=== PATIENT | female | born 1960 | race Caucasian/White ===

== ENCOUNTER 2017-09-26 07:57 | Day surgery (SDC) | payer BC ==
[~2017-09-26 07:57] MED LIST: ALPR0.25 PO; ASPI81TA82 PO; CARV6.252 PO; CLOP75 PO; HYDR10TA16 PO; SIMV40TA PO; TRAM50TA PO
[2017-09-26 10:00] VITALS: BP 133/77; PULSE 71; RESP 18; TEMP 98.8; O2SAT 100
[2017-09-26] MEDS ORDERED: LIDOCAINE HCL 1% 20 ML VIAL ONE (10:10)
[2017-09-26 10:15] VITALS: BP 98/72; PULSE 70; RESP 18; O2SAT 100
--- NOTE | 2017-09-26 10:17 | RADRPT ---
EXAM DATE/TIME: 09/26/2017 09:47 [facility] COMPARISON: No previous studies available for comparison. INDICATIONS : Status post left Thoracentesis. Patient complains of shortness of breath. MEDICAL HISTORY : Carcinoma, lung. Stage 4, last chemo was 04/2017. SURGICAL HISTORY : CABG. Port placement. Triple bypass 2010. ENCOUNTER: Initial ACUITY: 1 day PAIN SCORE: 0/10 LOCATION: Left chest FINDINGS: There is no evidence of pneumothorax status post left thoracentesis. Tiny residual left pleural effus ion is noted. Streaky densities are noted within the lung bases bilaterally and the left mid lung fie ld consistent with fibrotic scarring and/or atelectasis. Median sternotomy wires are noted status pos t cardiac surgery. Left subclavian Fkmycs-t-Yuwa has its tip in the superior vena cava. CONCLUSION: 1. No pneumothorax status post left thoracentesis. 2. Tiny residual left pleural effusion. 3. Streaky densities within the lung bases bilaterally and left mid lung field consistent with fibrot ic scarring and/or atelectasis. Reynaldo Cruz MD on September 26, 2017 at 10:13 Board Certified Radiologist. This report was verified electronically.
[2017-09-26 10:30] VITALS: BP 131/73; PULSE 72; RESP 18; O2SAT 100
--- NOTE | 2017-09-26 12:48 | RADRPT ---
EXAM DATE/TIME: 09/26/2017 08:51 [facility] COMPARISON: No previous studies available for comparison. EXTERNAL COMPARISON: [facility], PET/CT TUMOR, Sep 11 2017, CT CHEST WITH CONTRAST, AUGUST 14, 2017, MAY 20, 2017, NOVEMBER 18, 2016, XR CHEST PA AND LAT, October. INDICATIONS : Left pleural effusion. MEDICAL HISTORY : Myocardial infarction. Hypercholesterolemia. Carcinoma, lung. Chest pain. Pleural effusion. SURGICAL HISTORY : Tonsillectomy. Tubal ligation. Cardiac cath. D&C. Chemo therapy. Radiation therapy. ENCOUNTER: Initial ACUITY: 1 month PAIN SCORE: 0/10 LOCATION: Left chest FLUID: Total volume of 1,000 cc of clear graciela fluid was removed. Fluid was sent to lab for ordered studies. TECHNIQUE: 1. Ultrasound guidance for thoracentesis. 2. Thoracentesis. The risks, benefits, and alternatives to ultrasound guided thoracentesis were explained to the patien t in lay simple terms, including the risk of bleeding and infection. Written and verbal informed con sent was obtained. Appropriate area for thoracentesis was marked under ultrasound guidance with the patient in the uprig ht position. Overlying skin was prepped and draped in the usual sterile fashion and with local anest hetic, a dermatotomy was made with an 11 blade scalpel. A 6 Polish thoracentesis catheter was placed in the pleural space and fluid was removed. Catheter was then removed and a sterile dressing applie d. There were no immediate complications. The patient tolerated the procedure well and the left the ultrasound suite in stable condition. Chest radiograph is to be obtained. CONCLUSION: Uncomplicated ultrasound guided thoracentesis. Reynaldo Cruz MD on September 26, 2017 at 12:46 Board Certified Radiologist. This report was verified electronically.
== END 2017-09-26 10:30 | disposition home or self-care (01) ==
LOC: HRAD 07:57 → HRIP 08:03 → HRAD 10:30
PROVIDERS: ATTEND Internal Medicine Hematology & Oncology
DX: J90 Pleural effusion, not elsewhere classified (principal); I25.2 Old myocardial infarction; E78.00 Pure hypercholesterolemia, unspecified; C34.92 Malignant neoplasm of unspecified part of left bronchus or lung
CPT/HCPCS: 32555; 71045; 88112; 88305; C1729

== ENCOUNTER 2018-01-31 07:13 | Emergency (ER) | payer OTHER ==
[~2018-01-31] VITALS: Ht 157.5 cm; Wt 46.5 kg
[2018-01-31 07:15] VITALS: BP 196/96; PULSE 81; RESP 18; TEMP 98; O2SAT 97
[2018-01-31] MEDS ORDERED: SODIUM CHLOR 0.9% 1000 ML INJ 1,000 ML IV SCH (07:35)
[2018-01-31] MEDS ORDERED: OXYC-395 PO (07:43)
[2018-01-31] MEDS ORDERED: FOLI800T PO (07:43)
[2018-01-31] MEDS ORDERED: FENT75DI T-DERMAL (07:43)
[2018-01-31] MEDS ORDERED: ALPR0.25 PO (07:43)
[2018-01-31] MEDS ORDERED: AMIT50TA3 PO (07:43)
[2018-01-31] MEDS ORDERED: TRAM50TA PO (07:43)
[2018-01-31] MEDS ORDERED: HYDROmorphone HCL PF 1 MG/ML VIAL IVS ONE (07:45)
[2018-01-31] MEDS ORDERED: ONDANSETRON HCL 4 MG/2 ML VIAL IVP ONE (07:45)
--- NOTE | 2018-01-31 07:55 | PD ---
HPI Chief Complaint: Back/ Neck Pain or Injury Time Seen by Provider: 07:35 Travel History International Travel<30 days: No Contact w/Intl Traveler<30days: No Traveled to known affect area: No History of Present Illness HPI 57-year-old female patient with history of stage IV lung cancer currently following up with Dr. Lea, presents to the ER today because she has had several days history of left flank pain which she currently measures at a 10 out of 10. She does not know of any exacerbating alleviating factors although it does wax and wane. She denies any fevers, nausea, vomiting, urinary symptoms , diarrhea, or any other symptoms. She states that she is supposed to get CT with contrast of the chest and abdomen pelvis for her oncologist in a few days to evaluate the extent of the disease. Modifying Factors: None Associated Signs & Symptoms: Left flank pain Risk Factors: Lung cancer stage IV PFSH Past Medical History Heart Rhythm Problems: No Cancer: No Cardiac Catheterization: No (2009 30-60% blockage) Cardiovascular Problems: Yes High Cholesterol: Yes Chest Pain: Yes Congestive Heart Failure: No Diabetes: No Diminished Hearing: No Endocrine: No Genitourinary: No Hypertension: Yes Immune Disorder: No Musculoskeletal: No Neurologic: No Psychiatric: No Reproductive: No Respiratory: No Immunizations Current: Yes Myocardial Infarction: Yes (2009) Menopausal: Yes Dilation and Curettage (D&C): Yes Tubal Ligation: Yes Past Surgical History Cardiac Surgery: Yes Tonsillectomy: Yes Social History Alcohol Use: Yes (OCCASIONAL) Tobacco Use: Yes (1 PPD) Substance Use: No Allergies-Medications (Allergen,Severity, Reaction): Coded Allergies: No Known Allergies (Verified Adverse Reaction, Unknown, 01/31/18) Reported Meds & Prescriptions Reported Meds & Active Scripts Active Reported Amitriptyline (Amitriptyline HCl) 50 Mg Tab 50 Mg PO HS Alprazolam 0.25 Mg Tab 0.25 Mg PO Q6H PRN Tramadol (Tramadol HCl) 50 Mg Tab 50 Mg PO Q6H PRN Oxycodone (Oxycodone HCl) 10 Mg Tab 10 Mg PO Q6H PRN Folic Acid 0.8 Mg Tab 1,000 Mcg PO DAILY Fentanyl Patch 72 HR (Fentanyl) 75 Mcg/Hr Patch 75 Mcg T-DERMAL Q72H Remove old patch when new one placed. Review of Systems Except as stated in HPI: all other systems reviewed are Neg Physical Exam Narrative GENERAL: Well-developed middle-age female patient currently in mild distress. Awake and oriented 3. SKIN: Focused skin assessment warm/dry. HEAD: Atraumatic. Normocephalic. EYES: Pupils equal and round. No scleral icterus. No injection or drainage. ENT: No nasal bleeding or discharge. Mucous membranes pink and moist. NECK: Trachea midline. No JVD. CARDIOVASCULAR: Regular rate and rhythm. No murmur appreciated. RESPIRATORY: No accessory muscle use. Clear to auscultation. Breath sounds equal bilaterally. GASTROINTESTINAL: Abdomen soft, non-tender, nondistended. Hepatic and splenic margins not palpable. BACK: Left CVA tenderness. No rash. No point tenderness on palpation of the spine. MUSCULOSKELETAL: No obvious deformities. No clubbing. No cyanosis. No edema. NEUROLOGICAL: Awake and alert. No obvious cranial nerve deficits. Motor grossly within normal limits. Normal speech. PSYCHIATRIC: Appropriate mood and affect; insight and judgment normal. Data Data Last Documented VS Vital Signs Date Time Temp Pulse Resp B/P (MAP) Pulse Ox O2 Delivery O2 Flow Rate FiO2 01/31/18 12:39 12 01/31/18 11:36 53 142/76 (98) 95 Room Air 01/31/18 09:16 97.9 Orders Orders Complete Blood Count With Diff (01/31/18 07:35) Comprehensive Metabolic Panel (01/31/18 07:35) Lipase (01/31/18 07:35) Prothrombin Time / Inr (Pt) (01/31/18 07:35) Act Partial Throm Time (Ptt) (01/31/18 07:35) Urinalysis - C+S If Indicated (01/31/18 07:35) Ct Abd/Pel W Iv Contrast(Rout) (01/31/18 07:35) Iv Access Insert/Monitor (01/31/18 07:35) Ecg Monitoring (01/31/18 07:35) Oximetry (01/31/18 07:35) Ondansetron Inj (Zofran Inj) (01/31/18 07:45) Sodium Chlor 0.9% 1000 Ml Inj (Ns 1000 M (01/31/18 07:35) Sodium Chloride 0.9% Flush (Ns Flush) (01/31/18 07:45) Hydromorphone Pf Inj (Dilaudid Pf Inj) (01/31/18 07:45) Ct Thorax/ Chest W Iv Contrast (01/31/18 07:35) Hydromorphone Pf Inj (Dilaudid Pf Inj) (01/31/18 08:15) Metoclopramide Inj (Reglan Inj) (01/31/18 08:15) Iohexol 350 Inj (Omnipaque 350 Inj) (01/31/18 09:32) Hydromorphone Pf Inj (Dilaudid Pf Inj) (01/31/18 11:30) Ed Discharge Order (01/31/18 13:00) Labs Laboratory Tests Test 01/31/18 08:04 01/31/18 11:10 White Blood Count 7.4 TH/MM3 Red Blood Count 4.75 MIL/MM3 Hemoglobin 15.2 GM/DL Hematocrit 45.3 % Mean Corpuscular Volume 95.4 FL Mean Corpuscular Hemoglobin 32.0 PG Mean Corpuscular Hemoglobin Concent 33.5 % Red Cell Distribution Width 16.8 % Platelet Count 234 TH/MM3 Mean Platelet Volume 7.2 FL Neutrophils (%) (Auto) 82.3 % Lymphocytes (%) (Auto) 8.9 % Monocytes (%) (Auto) 7.9 % Eosinophils (%) (Auto) 0.5 % Basophils (%) (Auto) 0.4 % Neutrophils # (Auto) 6.1 TH/MM3 Lymphocytes # (Auto) 0.7 TH/MM3 Monocytes # (Auto) 0.6 TH/MM3 Eosinophils # (Auto) 0.0 TH/MM3 Basophils # (Auto) 0.0 TH/MM3 CBC Comment DIFF FINAL Differential Comment Prothrombin Time 11.1 SEC Prothromb Time International Ratio 1.1 RATIO Activated Partial Thromboplast Time 29.2 SEC Blood Urea Nitrogen 6 MG/DL Creatinine 0.65 MG/DL Random Glucose 96 MG/DL Total Protein 8.7 GM/DL Albumin 3.4 GM/DL Calcium Level 9.4 MG/DL Alkaline Phosphatase 80 U/L Aspartate Amino Transf (AST/SGOT) 15 U/L Alanine Aminotransferase (ALT/SGPT) 13 U/L Total Bilirubin 0.4 MG/DL Sodium Level 140 MEQ/L Potassium Level 3.7 MEQ/L Chloride Level 107 MEQ/L Carbon Dioxide Level 24.4 MEQ/L Anion Gap 9 MEQ/L Estimat Glomerular Filtration Rate 94 ML/MIN Lipase 82 U/L Urine Color Straw Urine Turbidity CLEAR Urine pH 5.0 Urine Specific [place] 1.059 Urine Protein NEG mg/dL Urine Glucose (UA) NEG mg/dL Urine Ketones 20 mg/dL Urine Occult Blood SMALL Urine Nitrite NEG Urine Bilirubin NEG Urine Urobilinogen LESS THAN 2 mg/dL Urine Leukocyte Esterase NEG Urine RBC LESS THAN 1 /hpf Microscopic Urinalysis Comment CULT NOT INDICATED MDM Medical Decision Making Medical Screen Exam Complete: Yes Emergency Medical Condition: Yes Medical Record Reviewed: Yes Interpretation(s) Laboratory Tests Test 01/31/18 08:04 01/31/18 11:10 Neutrophils (%) (Auto) 82.3 % (16.0-70.0) Lymphocytes (%) (Auto) 8.9 % (9.0-44.0) Lymphocytes # (Auto) 0.7 TH/MM3 (1.0-4.8) Blood Urea Nitrogen 6 MG/DL (7-18) Total Protein 8.7 GM/DL (6.4-8.2) Urine Specific [place] 1.059 (1.002-1.035) Urine Occult Blood SMALL (NEG) Last [address] 01/31/18 0735 Signed Impressions: CONCLUSION: 1. Severe emphysema with chronic changes in the left lung similar to the prior PET/CT that are likely related to treated lung cancer. The left pleural effusi on has decreased in size since August 2017. There is stable abnormal pleural t hickening in the left hemithorax. 2. There are new and enlarged right pulmonary nodules suspicious for metastati c disease. 3. Please refer to abdomen and pelvis report for description of the subdiaphra gmatic findings. Abdomen/Pelvis CT 01/31/18 0735 Signed Impressions: CONCLUSION: 1. There is trace free fluid within the pelvis. Otherwise, no acute finding is identified within the abdomen or pelvis. 2. Severe atherosclerotic disease. 3. There is airspace consolidation in the left lower lobe with a pleural thick ening and left pleural effusion. Findings will be further described on chest CT report. Differential Diagnosis Renal colic versus renal mass versus pyelonephritis/UTI versus musculoskeletal Narrative Course CAT scan shows left-sided lung mass with right pulmonary nodules concerning for metastases. CT of the abdomen did not show acute processes. Lab work was fairly unremarkable otherwise. Patient had been given Dilaudid for pain and is feeling more settled in the ER. At this point, my plan would be to release her with follow-up to her oncologist. Return for worsening in symptoms as necessary. The plan has been discussed with her and she states understanding. Diagnosis Primary Impression: Metastatic cancer to lung Disposition: 01 DISCHARGE HOME Condition: Stable Lesley Velasquez MD Jan 31, 2018 07:55
[2018-01-31 08:13] LABS: AUTOMATED NEUTROPHIL # 6.1 TH/MM3 (1.8-7.7); BASOPHIL % 0.4 % (0.0-2.0); EOSINOPHIL % 0.5 % (0.0-4.0); HEMATOCRIT 45.3 % (35.0-46.0); HEMOGLOBIN 15.2 GM/DL (11.6-15.3); LYMPH % 8.9 % (9.0-44.0); LYMPHOCYTE # 0.7 TH/MM3 (1.0-4.8); MEAN CELL VOLUME 95.4 FL (80.0-100.0); MEAN CORPUSCULAR HGB CONC 33.5 % (32.0-36.0); MEAN PLATELET VOLUME 7.2 FL (7.0-11.0); MONO % 7.9 % (0.0-8.0); MONOCYTE # 0.6 TH/MM3 (0-0.9); NEUT % 82.3 % (16.0-70.0); PLATELET COUNT 234 TH/MM3 (150-450); RED BLOOD COUNT 4.75 MIL/MM3 (4.00-5.30); RED CELL DISTRIBUTION WIDTH 16.8 % (11.6-17.2); WHITE BLOOD COUNT 7.4 TH/MM3 (4.0-11.0)
[2018-01-31] MEDS ORDERED: METOCLOPRAMIDE HCL 10 MG/2 ML VIAL IV PUSH ONE (08:15)
[2018-01-31] MEDS ORDERED: HYDROmorphone HCL PF 2 MG/ML VIAL IV PUSH ONE ×2 (08:15→11:30)
[2018-01-31 08:24] LABS: INTERNATIONAL NORMALIZED RATIO 1.1 RATIO; PROTHROMBIN TIME - PATIENT 11.1 SEC (9.8-11.6)
[2018-01-31 08:28] LABS: ALBUMIN 3.4 GM/DL (3.4-5.0); AST (GOT) 15 U/L (15-37); BICARBONATE 24.4 MEQ/L (21.0-32.0); BLOOD UREA NITROGEN 6 MG/DL (7-18); CALCIUM 9.4 MG/DL (8.5-10.1); CHLORIDE 107 MEQ/L (98-107); CREATININE 0.65 MG/DL (0.50-1.00); GLOMERULAR FILTRATION RATE 94 ML/MIN (>89); GLUCOSE,RANDOM 96 MG/DL (74-106); SODIUM (NA) 140 MEQ/L (136-145)
[2018-01-31 08:31] LABS: ALKALINE PHOSPHATASE 80 U/L (45-117); ALT (GPT) 13 U/L (10-53); TOTAL BILIRUBIN ADULT 0.4 MG/DL (0.2-1.0); TOTAL PROTEIN 8.7 GM/DL (6.4-8.2)
[2018-01-31] MEDS: SODIUM CHLORIDE 0.9% FLUSH 10 ML FLUSH IV FLUSH PRN ×2 (08:34→09:35)
[2018-01-31 09:16] VITALS: BP 157/65; PULSE 51; TEMP 97.9; O2SAT 98
[2018-01-31] MEDS ORDERED: IOHEXOL 350 MG/ML 10 ML VIAL (for RAD DIAG) IVCONTRAST ONE (09:32)
--- NOTE | 2018-01-31 09:45 | RADRPT ---
EXAM DATE: 01/31/2018 9:33 AM EDT AGE/SEX: 57 years / Female INDICATIONS: Left back and left pain. Stage four lung cancer. CLINICAL DATA: This is the patient's initial encounter. Patient reports that signs and symptoms have been present for 2 days and indicates a pain score of 10/10. MEDICAL/SURGICAL HISTORY: Carcinoma, lung. Cardiovascular disease. Myocardial infarction. Tub al ligation. Cardiac catheterization. ORAL CONTRAST: No oral contrast ingested. RADIATION DOSE: 4.86 CTDI (mGy) COMPARISON: [facility], CT ABDOMEN AND PELVIS W/ CONTRAST, 05/20/2017. . TECHNIQUE: Multiple contiguous axial images were obtained through the abdomen and pelvis following b olus infusion of 87 ml Omnipaque 350 (iohexol) nonionic water-soluble contrast as a cumulative dose for multiple exams. No oral contrast ingested. Using automated exposure control and adjustment of t mA and/or kV according to patient size, the radiation dose was kept as low as reasonably achievabl e to obtain optimal diagnostic quality images. FINDINGS: Lower chest: There is airspace consolidation in the left lower lobe with pleural thickening and left pleural fluid. Please refer to chest CT report for description of the supradiaphragmatic findings. Hepatobiliary: No focal liver lesion is identified. Hepatic vasculature demonstrates no abnormality. No calcified gallstones are present. Kidneys: No hydronephrosis, stone, or mass. Adrenal Glands: Within normal limits. Spleen: Within normal limits. Pancreas: Within normal limits. Vascular: The aorta is nonaneurysmal. There is severe atherosclerotic disease. Bowel/Mesentery: The stomach and small bowel demonstrate no abnormality. No acute colon abnormality i s seen. There is no free intraperitoneal air. A small hiatal hernia is present. There is sigmoid dive rticulosis. Trace free fluid is present within the pelvis. Abdominal Wall: No hernia is visualized. Retroperitoneum: No lymphadenopathy. Bladder: No wall thickening or mass. Reproductive: There is a stable coarse calcification in the left uterus measuring 12 mm representing a uterine fibroid. No adnexal abnormality is seen. Inguinal: No lymphadenopathy or hernia. Musculoskeletal: No acute osseous abnormality is identified. There are mild degenerative changes of t he lumbar spine but no lytic or blastic lesion is seen. CONCLUSION: 1. There is trace free fluid within the pelvis. Otherwise, no acute finding is identified within the abdomen or pelvis. 2. Severe atherosclerotic disease. 3. There is airspace consolidation in the left lower lobe with a pleural thickening and left pleural effusion. Findings will be further described on chest CT report. Electronically signed by: Rodriguez Alarcon MD 01/31/2018 9:44 AM EDT
--- NOTE | 2018-01-31 09:58 | RADRPT ---
EXAM DATE: 01/31/2018 9:45 AM EDT AGE/SEX: 57 years / Female INDICATIONS: Left posterior chest pain. Stage four lung cancer. CLINICAL DATA: This is the patient's initial encounter. Patient reports that signs and symptoms have been present for 2 days and indicates a pain score of 10/10. MEDICAL/SURGICAL HISTORY: Carcinoma, lung. Cardiovascular disease. Myocardial infarction. Tubal l igation. Cardiac catheterization. RADIATION DOSE: 4.86 CTDI (mGy) ; Combined studies COMPARISON: [facility], PET/CT TUMOR, 09/11/2017. . TECHNIQUE: Multiple contiguous axial images were obtained through the chest during bolus infusion of 87 ml Omnipaque 350 (iohexol) nonionic water-soluble contrast as a cumulative dose for multiple exa ms. Images were obtained in suspended respiration using multiple row detector helical technique. U sing automated exposure control and adjustment of the mA and/or kV according to patient size, radiati on dose was kept as low as reasonably achievable to obtain optimal diagnostic quality images. FINDINGS: Lungs: There is severe emphysema. In the right upper lobe there is a new 4 mm noncalcified pulmonary nodule, in the right lower lobe on image 45 there is a 6 mm comminuted nodule compared to 3 mm previ ously, in the right lower lobe on image 52 there is a 9 x 8 mm nodule compared to 6 x 6 mm previously , in the right lower lobe there is a stable 5 mm noncalcified pulmonary nodule and in the right lower lobe on image 64 there is a 7 mm noncalcified pulmonary nodule that is likely new. In the left lung there is architectural distortion, fibrosis, and traction bronchiectasis medially involving the left upper and left lower lobe. These changes are similar to the prior PET/CT. In the left upper lobe ther e is a 6 mm noncalcified pulmonary nodule that was not visualized previously. Consolidation is presen t in the left lower lobe also similar to the prior study. Mediastinum: The heart and great vessels demonstrate no acute abnormality. No lymphadenopathy is pre sent. There are changes related to prior CABG. Pleurae: There is a small left pleural effusion mostly in a subpulmonic location. Associated pleural thickening is present. The pleural effusion is decreased in size from the prior study. Axillae: No lymphadenopathy. Musculoskeletal: The bones and soft tissues demonstrate no acute abnormality. There is an area of s clerosis involving the medial left eighth rib that is stable. No lytic or blastic lesion is seen. Med ai sternotomy wires are present. Miscellaneous: Please refer to abdomen and pelvis CT report for description of the subdiaphragmatic findings. Left chest wall [id number] is present. CONCLUSION: 1. Severe emphysema with chronic changes in the left lung similar to the prior PET/CT that are likel y related to treated lung cancer. The left pleural effusion has decreased in size since August 2017. There is stable abnormal pleural thickening in the left hemithorax. 2. There are new and enlarged right pulmonary nodules suspicious for metastatic disease. 3. Please refer to abdomen and pelvis report for description of the subdiaphragmatic findings. Electronically signed by: Rodriguez Alarcon MD 01/31/2018 9:56 AM EDT
[2018-01-31 11:36] VITALS: BP 142/76; PULSE 53; RESP 18; O2SAT 95
[2018-01-31 12:39] VITALS: RESP 12
[2018-01-31 12:46] LABS: BILIRUBIN, URINE NEG (NEG); BLOOD, URINE SMALL (NEG); GLUCOSE,URINE NEG (NEG); KETONE, URINE 20 mg/dL (NEG); NITRITE,URINE NEG (NEG); URINE COLOR Straw (YELLW/STRAW); URINE LEUKOCYTE ESTERASE NEG (NEG)
== END 2018-01-31 13:18 | disposition home or self-care (01) ==
LOC: NEPE 07:13
DX: R10.9 Unspecified abdominal pain (principal); J43.9 Emphysema, unspecified; R91.8 Other nonspecific abnormal finding of lung field; C34.90 Malignant neoplasm of unspecified part of unspecified bronchus or lung; I10 Essential (primary) hypertension; I25.2 Old myocardial infarction; F17.200 Nicotine dependence, unspecified, uncomplicated; Z79.899 Other long term (current) drug therapy; E78.00 Pure hypercholesterolemia, unspecified
CPT/HCPCS: 71260; 74177; 80053; 81001; 83690; 85025; 85610; 85730; 96361; 96374; 96375; 96376; 99284; J1170; J2765; J7030; Q9967

== ENCOUNTER 2018-10-12 07:43 | Inpatient (IN) ==
--- NOTE | 2018-10-12 08:01 | ED ---
HPI General Chief Complaint: Shortness of Breath/Dyspnea Stated Complaint: SOB Time Seen by Provider: 10/12/18 07:52 Source: patient and EMS Mode of arrival: EMS Limitations: no limitations History of Present Illness 58-year-old for female complains of shortness of breath. Patient states that her shortness of breath started this morning. Patient has history of adenocarcinoma left lung status post chemotherapy. Patient is on Keytruda now. Patient states that she started having increasing shortness of breath this morning. EMS was called. Patient was given albuterol x1 and DuoNeb treatment x1 and Solu-Medrol 125 mg IV prior to arrival. Patient is feeling much better now. Patient denies any chest pain. Patient denies any fever chills. Patient states that she has history of chronic productive cough and is not new. Patient has history of CAD status post IA and CABG. Patient has history hypertension, hyperlipidemia. Patient is an ex-smoker. Patient states that she has inhaler at home and use it this morning prior to calling EMS. Patient was seen in emergency room 2 days ago for lower extremity edema. Patient refused CT pulmonary angiogram to rule out PE at that time. Patient was given Lasix with good relief. Patient was discharged. MD Complaint: Reports shortness of breath Onset (ago): hour(s) Severity: moderate Consistency/Duration: progressively worsening Relieving factors: oxygen, bronchodilators and medication Exacerbating factors: nothing Known history of: Reports other Associated symptoms: Reports denies other symptoms Treatment prior to arrival: Reports oxygen and bronchodilator Related Data Home Medications Medication Instructions Recorded Confirmed albuterol sulfate 2 puff INHALATION QID PRN 09/09/18 10/12/18 benzonatate 100 mg PO TID PRN 09/09/18 10/12/18 fentanyl 1 patch TRANSDERMAL Q72H 09/09/18 10/12/18 fentanyl 1 patch TRANSDERMAL Q72H 09/09/18 10/12/18 gabapentin 300 mg PO BID 09/09/18 10/12/18 oxycodone 15 mg PO Q4-6H PRN 09/09/18 10/12/18 dexamethasone 1 mg PO DAILY 10/10/18 10/12/18 Previous Rx's Medication Instructions Recorded furosemide [Lasix] 80 mg PO DAILY #30 tab 10/10/18 Allergies Allergy/AdvReac Type Severity Reaction Status Date / Time No Known Allergies Allergy Verified 09/09/18 12:52 Review of Systems ROS: all other systems reviewed are negative PMFSH Medical History Medical History FH: CABG (coronary artery bypass surgery) (Acute) Lung cancer (Acute) Surgical History Surgical History Hx of CABG (Acute) Social History Social History Substance History: No History of Abuse Second Hand Smoke Exposure: Yes Smoking Status: Current every day smoker Tobacco Type: Cigarettes How Often Do You Have a Drink Containing Alcohol: Never Recent Travel in [facility] within the Last 8 Weeks: No Recent Out of Country Travel within the Last 8 Weeks: No Immunization History Tetanus Immunization: Unsure Exam Narrative Exam Narrative: GENERAL: Well-nourished, well-developed patient. SKIN: Focused skin assessment warm/dry. HEAD: Normocephalic. EYES: No scleral icterus. No injection or drainage. NECK: Supple, trachea midline. No JVD or lymphadenopathy. CARDIOVASCULAR: Regular rate and rhythm without murmurs, gallops, or rubs. RESPIRATORY: Patient has decreased breath sounds on the left lung. No expiratory wheezes. Few rhonchi on the right base. GASTROINTESTINAL: Abdomen soft, non-tender, nondistended. MUSCULOSKELETAL: No cyanosis, or edema. BACK: Nontender without obvious deformity. No CVA tenderness. Neurologic exam normal. Course Initial Documented Vital Signs Temperature 97.7 F 10/12/18 07:50 Pulse Rate 88 10/12/18 07:50 Respiratory Rate 20 10/12/18 07:50 Blood Pressure 170/96 H 10/12/18 07:50 Pulse Oximetry 90 L 10/12/18 07:50 Last Documented Vital Signs Temperature 97.7 F 10/12/18 07:50 Pulse Rate 83 10/12/18 07:59 Respiratory Rate 20 10/12/18 07:50 Blood Pressure 170/96 H 10/12/18 07:50 Pulse Oximetry 95 10/12/18 07:59 Medical Decision Making MDM Narrative Medical decision making narrative: 58-year-old female with shortness of breath. History of adenocarcinoma left lung. Patient was given DuoNeb and Solu- Medrol with much relief of his symptoms. Cefepime 1 g IV. Zithromax 5 mg IV. Normal saline solution 100 cc an hour. Medical Screen Exam Complete: Yes Emergency Medical Condition: Yes Differential Diagnosis Differential Diagnosis: Differential diagnosis including reactive airway disease , bronchitis, pneumonia, pleural effusion, obstructive lesion. Lab Data Lab results reviewed: Yes I reviewed the patient's lab results. Result diagrams: 10/12/18 08:00 10/12/18 08:00 Lab Results 10/12/18 10/12/18 10/12/18 Range/Units 08:00 08:00 08:00 WBC 11.6 H (4.0-11.0) th/mm3 RBC 4.82 (4.00-5.30) mil/mm3 Hgb 15.0 (11.6-15.3) gm/dL Hct 45.7 (35.0-46.0) % MCV 94.7 (80.0-100.0) fL MCH 31.1 (27.0-34.0) pg MCHC 32.9 (32.0-36.0) % RDW 18.7 H (11.6-17.2) % Plt Count 275 (150-450) th/mm3 MPV 6.7 L (7.0-11.0) fL Neut % (Auto) 82.9 H (16.0-70.0) % Lymph % (Auto) 7.0 L (9.0-44.0) % Linn % (Auto) 9.9 H (0.0-8.0) % Eos % (Auto) 0.2 (0.0-4.0) % Baso % (Auto) 0.0 (0.0-2.0) % Neut # (Auto) 9.6 H (1.8-7.7) th/mm3 Lymph # (Auto) 0.8 L (1.0-4.8) th/mm3 Linn # (Auto) 1.1 H (0.0-0.9) th/mm3 Eos # (Auto) 0.0 (0.0-0.4) th/mm3 Baso # (Auto) 0.0 (0.0-0.2) th/mm3 WBC Differential . Differential Comment Auto diff final PT 11.5 (9.8-11.6) sec INR 1.1 Ratio APTT 26.3 (23.4-31.7) sec Sodium 129 L (136-145) meq/L Potassium 3.6 (3.5-5.1) meq/L Chloride 88 L (98-107) meq/L Carbon Dioxide 32.5 H (21.0-32.0) meq/L Anion Gap 9 (5-15) meq/L BUN 21 H (7-18) mg/dL Creatinine 0.57 (0.50-1.00) mg/dL Estimated GFR Greater than 89 (>89) mL/min Random Glucose 94 (74-106) mg/dL Calcium 8.6 (8.5-10.1) mg/dL Total Bilirubin 0.9 (0.2-1.0) mg/dL AST 27 (15-37) U/L ALT 28 (10-53) U/L Alkaline Phosphatase 92 (45-117) U/L B-Natriuretic Peptide (0-100) pg/mL Total Protein 6.3 L (6.4-8.2) g/dL Albumin 2.6 L (3.4-5.0) g/dL 10/12/18 Range/Units 08:00 WBC (4.0-11.0) th/mm3 RBC (4.00-5.30) mil/mm3 Hgb (11.6-15.3) gm/dL Hct (35.0-46.0) % MCV (80.0-100.0) fL MCH (27.0-34.0) pg MCHC (32.0-36.0) % RDW (11.6-17.2) % Plt Count (150-450) th/mm3 MPV (7.0-11.0) fL Neut % (Auto) (16.0-70.0) % Lymph % (Auto) (9.0-44.0) % Linn % (Auto) (0.0-8.0) % Eos % (Auto) (0.0-4.0) % Baso % (Auto) (0.0-2.0) % Neut # (Auto) (1.8-7.7) th/mm3 Lymph # (Auto) (1.0-4.8) th/mm3 Linn # (Auto) (0.0-0.9) th/mm3 Eos # (Auto) (0.0-0.4) th/mm3 Baso # (Auto) (0.0-0.2) th/mm3 WBC Differential Differential Comment PT (9.8-11.6) sec INR Ratio APTT (23.4-31.7) sec Sodium (136-145) meq/L Potassium (3.5-5.1) meq/L Chloride (98-107) meq/L Carbon Dioxide (21.0-32.0) meq/L Anion Gap (5-15) meq/L BUN (7-18) mg/dL Creatinine (0.50-1.00) mg/dL Estimated GFR (>89) mL/min Random Glucose (74-106) mg/dL Calcium (8.5-10.1) mg/dL Total Bilirubin (0.2-1.0) mg/dL AST (15-37) U/L ALT (10-53) U/L Alkaline Phosphatase (45-117) U/L B-Natriuretic Peptide 153 H (0-100) pg/mL Total Protein (6.4-8.2) g/dL Albumin (3.4-5.0) g/dL Imaging Data Attestation: I personally reviewed and interpreted this imaging study as follows : Radiologist's impression: Chest X-Ray 10/12/18 07:56 CONCLUSION: Complete opacification of the left hemithorax Developing parenchymal changes right base. Discharge Plan Discharge Disposition Patient Disposition: ED Admit(ED Internal Use Only) Discharge Details Diagnosis: Pneumonia, Acute hyponatremia Physicians Team ED Provider: Lewis Gordon Rxs /Orders / Referrals /Forms Prescriptions: No Action fentanyl 50 mcg/hr Patch 72 Hour 1 patch TRANSDERMAL Q72H RF: 0 oxycodone 15 mg Tablet 15 mg PO Q4-6H PRN (Reason: Pain) RF: 0 fentanyl 100 mcg/hr Patch 72 Hour 1 patch TRANSDERMAL Q72H RF: 0 benzonatate 100 mg Capsule 100 mg PO TID PRN (Reason: Cough) RF: 0 gabapentin 300 mg Capsule 300 mg PO BID RF: 0 albuterol sulfate 90 mcg/actuation Hfa Aerosol Inhaler 2 puff INHALATION QID PRN (Reason: Wheezing) RF: 0 dexamethasone 1 mg Tablet 1 mg PO DAILY RF: 0 furosemide [Lasix] 80 mg tablet 80 mg PO DAILY Qty: 30 RF: 0 Discharge Interventions Interventions: Vital Signs Last Done: 10/12/18 07:57 Status ED Status: With Doctor
[2018-10-12 08:38] LABS: Eos % (Auto) 0.2 % (0.0-4.0); Hematocrit 45.7 % (35.0-46.0); Lymph # (Auto) 0.8 th/mm3 (1.0-4.8); Mean Corpuscular HGB Conc 32.9 % (32.0-36.0); Mean Corpuscular Hemoglobin 31.1 pg (27.0-34.0); Mean Corpuscular Volume 94.7 fL (80.0-100.0); Mean Platelet Volume 6.7 fL (7.0-11.0); Mono # (Auto) 1.1 th/mm3 (0.0-0.9); Mono % (Auto) 9.9 % (0.0-8.0); Neut # (Auto) 9.6 th/mm3 (1.8-7.7); Neut % (Auto) 82.9 % (16.0-70.0); Platelet Count 275 th/mm3 (150-450); Red Blood Count 4.82 mil/mm3 (4.00-5.30); Red Cell Distribution Width 18.7 % (11.6-17.2); White Blood Count 11.6 th/mm3 (4.0-11.0)
--- NOTE | 2018-10-12 08:46 | XR ---
EXAM DATE: 10/12/2018 8:39 AM EST AGE/SEX: 58 years / Female INDICATIONS: Shortness of breath. CLINICAL DATA: This is the patient's initial encounter. Patient reports that signs and symptoms have been present for 1 day and indicates a pain score of 0/10. MEDICAL/SURGICAL HISTORY: . Myocardial infarction. Hypercholesterolemia. Carcinoma, lung. Chest pain. Pleural effusion. . Tonsillectomy. Tubal ligation. Cardiac cath. D&C. Chemo therapy. Radiation therapy. . COMPARISON: [facility] [place], CHEST 1V SINGLE AP, 10/10/2018. . FINDINGS: There is complete opacification of the left hemithorax. Developing parenchymal changes are seen in th e right base new from comparison study. [id number] in good position. Sternal wires previous bypass are noted. The portion of the bony skeleton visualized is unremarkable. CONCLUSION: Complete opacification of the left hemithorax Developing parenchymal changes right base. Electronically signed by: Wilman Hollins MD Board Certified Radiologist 10/12/2018 8:45 AM EST
[2018-10-12 08:51] LABS: Activated Partial Thrombo Time 26.3 sec (23.4-31.7); INR 1.1 Ratio; Prothrombin Time 11.5 sec (9.8-11.6)
[2018-10-12 09:03] LABS: Albumin 2.6 g/dL (3.4-5.0); Anion Gap 9 meq/L (5-15); Aspartate Aminotransferase 27 U/L (15-37); Blood Urea Nitrogen 21 mg/dL (7-18); Calcium 8.6 mg/dL (8.5-10.1); Carbon Dioxide 32.5 meq/L (21.0-32.0); Chloride 88 meq/L (98-107); Glomerular Filtration Rate Greater Than 89 mL/min (>89); Glucose,Random 94 mg/dL (74-106); Potassium 3.6 meq/L (3.5-5.1); Sodium 129 meq/L (136-145)
[2018-10-12 09:04] LABS: Alanine Aminotransferase 28 U/L (10-53)
[2018-10-12 09:06] LABS: Alkaline Phosphatase 92 U/L (45-117); Total Protein 6.3 g/dL (6.4-8.2)
[2018-10-12] MEDS ORDERED: Azithromycin Inj 500 MG in Sodium Chlor 0.9% Inj 250 ML IV.SIG ONE (10:41)
[2018-10-12] MEDS: Sod Chloride 0.9% Inj 1,000 ML IV.CONT SCH ×2 (11:38→20:12)
[2018-10-12] MEDS ORDERED: Gabapentin 300 MG Capsule PO ONE (11:54)
--- NOTE | 2018-10-12 12:34 | CT ---
EXAM DATE: 10/12/2018 12:20 PM EST AGE/SEX: 58 years / Female INDICATIONS: Worsening dyspnea, lung cancer CLINICAL DATA: This is the patient's initial encounter. Patient reports that signs and symptoms have been present for 1 day and indicates a pain score of 2/10. MEDICAL/SURGICAL HISTORY: Carcinoma, lung. CABG. RADIATION DOSE: 5.68 CTDI (mGy) COMPARISON: [facility], CT CHEST W/ CONTRAST, 08/27/2018. . TECHNIQUE: Volumetric scanning was performed using a multi-row detector CT scanner during bolus infu nasrin of 60 ml Visipaque 320 (iodixanol) nonionic water-soluble contrast as a single exam dose. The d gretchen was post processed with a variety of visualization algorithms including full volume maximum inten sity projection and sliding thin slab reformation. Using automated exposure control and adjustment of the mA and/or kV according to patient size, radiation dose was kept as low as reasonably achievable to obtain optimal diagnostic quality images. DICOM format image data is available electronically for review and comparison. FINDINGS: Pulmonary Arteries: No filling defects are seen in the pulmonary arteries out to the subsegmental ve ssels. The left and right pulmonary arteries are normal in diameter. Lung: There has been no new or significant changes with the overall appearance of the lung gonzales co mpared to the prior examination. There continues to be opacification of the left hemithorax with sirena apse of essentially the entire left lung. There is a loculated complex left-sided pleural fluid colle ction especially in the left upper hemithorax with pockets of air. This is unchanged compared to the prior examination. There is bullous emphysema throughout the right lung with multiple stable pulmonar y nodules as previously described. There is compressive atelectasis in the right lung base with a sma ll to moderate right pleural effusion. The right pleural effusion is new. Mediastinum: No evidence of mediastinal or hilar adenopathy. Stable compared to the prior study. Other: The axilla is unremarkable. CONCLUSION: 1. Compared to the prior exam, there is a new small to moderate right-sided pleural effusion. 2. There is no evidence of pulmonary embolism. 3. There has been no significant change in the overall appearance of the left hemithorax compared to the prior exam. 4. There is some new compressive atelectasis in the right lung base. 5. There are multiple stable nonspecific right-sided pulmonary nodules. Electronically signed by: Sy Willams MD Board Certified Radiologist 10/12/2018 12:32 PM EST
[2018-10-12] MEDS ORDERED: Benzonatate 100 MG Capsule PO PRN (15:04)
[2018-10-12] MEDS ORDERED: Bisacodyl 10 MG Supp RECTAL PRN (15:05)
[2018-10-12] MEDS ORDERED: Acetaminophen 325 MG Tablet PO PRN (15:05)
[2018-10-12] MEDS ORDERED: Azithromycin 250 MG Tablet PO SCH (15:15)
--- NOTE | 2018-10-12 15:19 | P.HPIM ---
History of Present Illness Primary Care Physician: Bianca Yuan Chief Complaint: Shortness of breath History of Present Illness: This is a 58-year-old female with history of stage IV lung cancer on Keytruda, coronary artery disease status post NC and CABG and COPD. She returns to the emergency department because of worsening shortness of breath. Denies fever, chills. She has chronic productive cough of yellow sputum. She also reports intermittent bilateral lower extremity swelling and was evaluated in the emergency department 2 days ago and was advised to increase Lasix. Denies leg pain. CHEST X-RAY independently reviewed by me showed complete opacification of the left hemithorax and parenchymal changes on the right base. Chest CTA shows new small to moderate right-sided pleural effusion. No evidence of pulmonary embolism. No significant change in the overall appearance of the left hemothorax. There is some new compressive atelectasis in the right lung base and multiple stable nonspecific right-sided pulmonary nodules. BNP is also elevated but no history of heart failure. All other systems reviewed Inpatient Certification Inpatient Certification: I certify that the inpatient services were ordered in accordance with Medicare regulations governing the order. This includes certification that hospital inpatient services are reasonable and necessary and in the case of services not specified as inpatient-only under 42 CFR 419.22(n), that they are appropriately provided as inpatient services in accordance to with the 2-midnight benchmark under 43 CFR 412.3(e) Estimated Total Length of Stay (Days): 3 Plans for Post Hospital Care: Not yet determined Review of Systems Review of Systems: all other systems reviewed are negative [facility] Medical History Medical History FH: CABG (coronary artery bypass surgery) (Acute) Lung cancer (Acute) Surgical History Surgical History Hx of CABG (Acute) Family History Family History Other No pertinent family history Social History Social History Substance History: No History of Abuse Second Hand Smoke Exposure: Yes Smoking Status: Current every day smoker Tobacco Type: Cigarettes How Often Do You Have a Drink Containing Alcohol: Never Recent Travel in [place] within the Last 8 Weeks: No Recent Out of Country Travel within the Last 8 Weeks: No Immunization History Tetanus Immunization: Unsure Medications and Allergies Allergies Allergy/AdvReac Type Severity Reaction Status Date / Time No Known Allergies Allergy Verified 09/09/18 12:52 Home Medications Medication Instructions Recorded Confirmed Type albuterol sulfate 2 puff INHALATION QID PRN 09/09/18 10/12/18 History benzonatate 100 mg PO TID PRN 09/09/18 10/12/18 History fentanyl 1 patch TRANSDERMAL Q72H 09/09/18 10/12/18 History fentanyl 1 patch TRANSDERMAL Q72H 09/09/18 10/12/18 History gabapentin 300 mg PO BID 09/09/18 10/12/18 History oxycodone 15 mg PO Q4-6H PRN 09/09/18 10/12/18 History dexamethasone 1 mg PO DAILY 10/10/18 10/12/18 History Active Medications: Active Medications Acetaminophen (Tylenol) 650 mg PO Q4H PRN PRN Reason: Temp > 100.4 Al Hydroxide/Mg Hydroxide (Milk Of Shruthi Liq) 30 ml PO Q12H PRN PRN Reason: Mild Constipation Albuterol (Albuterol Neb (Prn)) 2.5 mg NEB Q2H PRN PRN Reason: SHORTNESS OF BREATH Albuterol (Duoneb Neb (Chele)) 1 ampul NEB Q6HR NEB CHELE Azithromycin (Zithromax) 500 mg PO DAILY CHELE Stop: 10/14/18 09:01 Benzonatate (Tessalon Perles) 100 mg PO TID PRN PRN Reason: Cough Bisacodyl (Dulcolax Supp) 10 mg RECTAL DAILY PRN PRN Reason: SEVERE CONSITIPATION Clonidine HCl (Catapres) 0.1 mg PO Q6H PRN PRN Reason: SEE LABEL COMMENTS Enalaprilat (Vasotec Inj) 1.25 mg IV.PUSH Q6H PRN PRN Reason: SEE LABEL COMMENTS Fentanyl (Duragesic 100 Mcg Patch.72hr) 1 patch T-DERMAL Q72H CHELE Fentanyl (Duragesic 50 Mcg Patch.72hr) 1 patch T-DERMAL Q72H [facility] Furosemide (Lasix Inj) 40 mg IV.PUSH BID@0900,1800 [facility] Gabapentin (Neurontin) 300 mg PO BID [facility] Sodium Chloride (Ns Inj) 1,000 mls @ 100 mls/hr IV.CONT .Q10H [facility]LE Last Admin: 10/12/18 11:38 Dose: 100 mls/hr Lactulose (Lactulose Liq) 30 ml PO DAILY PRN PRN Reason: SEVERE CONSITIPATION Methylprednisolone Sodium Succinate (Solumedrol Inj) 60 mg IV.PUSH Q6H [facility] Non-Formulary Medication (Dexamethasone [Dexamethasone]) 1 mg PO DAILY [facility] Non-Formulary Medication (Oxycodone [Oxycodone]) 15 mg PO Q4H PRN PRN Reason: Pain Ondansetron HCl (Zofran Inj) 4 mg IV.PUSH Q6H PRN PRN Reason: NAUSEA OR VOMITING Oxycodone HCl (Roxicodone) 10 mg PO ONCE [facility] Potassium Chloride (K-Dur) 40 meq PO BID [facility] Senna/Docusate Sodium (Haylee-Colace) 1 tab PO BID [facility] Sennosides (Senokot) 17.2 mg PO Q12H PRN PRN Reason: Moderate Constipation Sodium Chloride (Ns Flush) 2 ml IV.FLUSH BID [facility] Sodium Chloride (Ns Flush) 2 ml IV.FLUSH PRN PRN PRN Reason: FLUSH AFTER USING IV ACCESS Physical Exam Vital signs: Vital Signs 10/12/18 07:50 10/12/18 07:57 10/12/18 07:59 Temperature 97.7 F Pulse Rate 88 83 Respiratory Rate 20 Blood Pressure 170/96 H Pulse Oximetry 90 L 94 L 95 10/12/18 14:04 Temperature Pulse Rate Respiratory Rate 17 Blood Pressure Pulse Oximetry Intake & Output 10/11/18 10/12/18 10/12/18 18:59 06:59 18:59 Intake Total 350 / 350 Balance 350 / 350 Weight 49.895 kg Intake: IV 350 / 350 Azithromycin Inj 500 MG In NS 250 / 250 Inj 250 ML @ 250 mls/hr IV.SIG ONCE ONE Rx#:[id number] Maxipime Inj 1,000 MG In NS Inj 100 / 100 100 ML @ 200 mls/hr IV.SIG ONCE ONE Rx#:[id number] Narrative: GENERAL: Well-developed, well-nourished in no distress on nasal cannula SKIN: Warm and dry. HEAD: Atraumatic. Normocephalic. EYES: Pupils equal and round. No scleral icterus. No injection or drainage. ENT: No nasal bleeding or discharge. Mucous membranes pink and moist. NECK: Trachea midline. No JVD. CARDIOVASCULAR: Regular rate and rhythm. RESPIRATORY: No accessory muscle use. Decreased breath sounds with diffuse expiratory wheeze GASTROINTESTINAL: Abdomen soft, non-tender, nondistended. MUSCULOSKELETAL: Extremities without clubbing, cyanosis but with bilateral lower extremity pitting edema. No obvious deformities. NEUROLOGICAL: Awake and alert. No obvious cranial nerve deficits. Motor grossly within normal limits. Five out of 5 muscle strength in the arms and legs. Normal speech. PSYCHIATRIC: Appropriate mood and affect; insight and judgment normal. Results Labs CBC & Chem 7: 10/12/18 08:00 10/12/18 08:00 Imaging Impressions Chest X-Ray 10/12/18 07:56 CONCLUSION: Complete opacification of the left hemithorax Developing parenchymal changes right base. Chest CTA 10/12/18 11:24 CONCLUSION: 1. Compared to the prior exam, there is a new small to moderate right-sided pleural effusion. 2. There is no evidence of pulmonary embolism. 3. There has been no significant change in the overall appearance of the left hemithorax compared to the prior exam. 4. There is some new compressive atelectasis in the right lung base. 5. There are multiple stable nonspecific right-sided pulmonary nodules. Caprini VTE Risk Assessment Caprini VTE Risk Assessment: Moderate/High Risk (score >= 2) Caprini Risk Assessment Model: Point Value = 1 Point Value = 2 Point Value = 3 Point Value = 5 Age 41-60 Minor surgery BMI > 25 kg/m2 Swollen legs Varicose veins or History of unexplained or recurrent spontaneous Oral contraceptives or hormone replacement Sepsis (< 1 month) Serious lung disease, including pneumonia (< 1 month) Abnormal pulmonary function Acute myocardial infarction Congestive heart failure (< 1 month) History of inflammatory bowel disease Medical patient at bed rest Age 61-74 Arthroscopic surgery Major open surgery (> 45 min) Laparoscopic surgery (> 45 min) Malignancy Confined to bed (> 72 hours) Immobilizing plaster cast Central venous access Age >= 75 History of VTE Family history of VTE Factor V Leiden Prothrombin [id number] Lupus anticoagulant Anticardiolipin antibodies Elevated serum homocysteine Heparin-induced thrombocytopenia Other congenital or acquired thrombophilia Stroke (< 1 month) Elective arthroplasty Hip, pelvis, or leg fracture Acute spinal cord injury (< 1 month) Prophylaxis Regimen: Total Risk Factor Score Risk Level Prophylaxis Regimen 0-1 Low Early ambulation 2 Moderate Order ONE of the following: *Sequential Compression Device (SCD) *Heparin 5000 units SQ BID 3-4 Higher Order ONE of the following medications: *Heparin 5000 units SQ TID *Enoxaparin/Lovenox 40 mg SQ daily (WT < 150 kg, CrCl > 30 mL/min) *Enoxaparin/Lovenox 30 mg SQ daily (WT < 150 kg, CrCl > 10-29 mL/min) *Enoxaparin/Lovenox 30 mg SQ BID (WT < 150 kg, CrCl > 30 mL/min) AND/OR *Sequential Compression Device (SCD) 5 or more Highest Order ONE of the following medications: *Heparin 5000 units SQ TID (Preferred with Epidurals) *Enoxaparin/Lovenox 40 mg SQ daily (WT < 150 kg, CrCl > 30 mL/min) *Enoxaparin/Lovenox 30 mg SQ daily (WT < 150 kg, CrCl > 10-29 mL/min) *Enoxaparin/Lovenox 30 mg SQ BID (WT < 150 kg, CrCl > 30 mL/min) AND *Sequential Compression Device (SCD) Assessment and Plan Plan This is a 58-year-old female with history of stage IV lung cancer on Keytruda, coronary artery disease status post NC and CABG and COPD. She returns to the emergency department because of worsening shortness of breath. Denies fever, chills. She has chronic productive cough of yellow sputum. She also reports intermittent bilateral lower extremity swelling and was evaluated in the emergency department 2 days ago and was advised to increase Lasix. Denies leg pain. CHEST X-RAY independently reviewed by me showed complete opacification of the left hemithorax and parenchymal changes on the right base. Chest CTA shows new small to moderate right-sided pleural effusion. No evidence of pulmonary embolism. No significant change in the overall appearance of the left hemothorax. There is some new compressive atelectasis in the right lung base and multiple stable nonspecific right-sided pulmonary nodules. BNP is also elevated New onset heart failure. We will start diuresis with IV Lasix with potassium supplementation and monitor renal function. Check echocardiogram. CHF education, I/L and monitor weight COPD exac. Start scheduled nebulization, IV steroids and Levaquin. Obtain sputum culture Elevated BP. No history of hypertension. Patient on Lasix. Check EKG. As needed Vasotec and clonidine Hyponatremia likely from lung cancer per the fluid restriction. Monitor consider NaCl tabs DVT prophylaxis with SCD and early ambulation hold pharmacological prophylaxis may need thoracentesis
--- NOTE | 2018-10-12 17:14 | ECHRPT ---
Indication: HEART FAILURE CONCLUSIONS The left ventricular systolic function is normal with an estimated ejection fraction in the range of 60-65%. The right ventricular systoilc function is mildly decreased. Anterior mitral valve leaflet with mild prolapse. Mild mitral valve regurgitation. Mild aortic valve regurgitation. There is moderate tricuspid regurgitation. There is estimated moderate pulmonary hypertension present (range 50-60 mmHg). Bilateral pleural effusions BP: / HR: Rhythm: Sinus MEASUREMENTS (Male / Female) Normal Values Technical Quality:Fair 2D ECHO LVOT Diameter 1.7 cm Aortic Root Diameter 2.5 cm M-MODE AV Cusp Separation MM 1.9 cm DOPPLER AV Peak Velocity 137.0 cm/s AV Peak Gradient 7.5 mmHg AV Mean Gradient 4.0 mmHg AV Velocity Time Integral 18.0 cm AI Peak Velocity 447.0 cm/s AI Peak Gradient 79.9 mmHg AI Pressure Half Time 677.0 ms LVOT Peak Velocity 66.9 cm/s LVOT Peak Gradient 1.8 mmHg LVOT Velocity Time Integral 12.6 cm AV Area Cont Eq vti 1.6 cm AV Area Cont Eq pk 1.1 cm Mitral E Point Velocity 77.0 cm/s Mitral A Point Velocity 74.5 cm/s Mitral E to A Ratio 1.0 LV E' Lateral Velocity 3.4 cm/s Mitral E to LV E' Lateral Ratio 22.6 LV E' Septal Velocity 6.9 cm/s Mitral E to LV E' Septal Ratio 11.1 TR Peak Velocity 319.0 cm/s TR Peak Gradient 40.7 mmHg Right Atrial Pressure 10.0 mmHg Pulmonary Artery Systolic Pressu 50.7 mmHg Right Ventricular Systolic Press 50.7 mmHg PV Peak Velocity 81.2 cm/s PV Peak Gradient 2.6 mmHg FINDINGS LEFT VENTRICLE Normal left ventricular size. Wall thickness is normal. The left ventricular systolic function is normal with an estimated ejection fraction in the range of 60-65%. RIGHT VENTRICLE The right ventricular systoilc function is mildly decreased. LEFT ATRIUM The left atrial size is normal. RIGHT ATRIUM The right atrial size is normal. ATRIAL SEPTUM No atrial level shunt is demonstrated by color flow Doppler interrogation. AORTA The aortic root and proximal ascending aorta are normal in size on limited imaging. MITRAL VALVE Anterior mitral valve leaflet with mild prolapse. Mild mitral valve regurgitation. No mitral valve stenosis. AORTIC VALVE Aortic valve sclerosis is present. Mild aortic valve regurgitation. No aortic valve stenosis. TRICUSPID VALVE Structurally normal tricuspid valve. There is moderate tricuspid regurgitation. The estimated pulmonary arterial pressure is 50.7 mmHg. There is estimated moderate pulmonary hypertension present (range 50-60 mmHg). PULMONARY VALVE No pulmonary valve regurgitation or stenosis. VESSELS The inferior vena cava is dilated. PERICARDIUM No pericardial effusion. A right sided pleural effusion is present. A left sided pleural effusion is present. Kadeem Gresham DO (Electronically Signed) Final Date:12 October 2018 17:13
[2018-10-12] MEDS: levoFLOXacin 750 MG Tablet PO SCH (18:03)
[2018-10-12] MEDS: MethylPREDNISolone Sod Succinate Inj 40 MG/ML Vial IV.PUSH SCH (18:03)
--- NOTE | 2018-10-12 19:56 | MB ---
cc: Damian Chand MD DATE: 10/12/2018 REQUESTING PHYSICIAN: Walter Bender MD REASON FOR CONSULTATION: Respiratory failure and pleural effusion. HISTORY OF PRESENT ILLNESS: Ms. Herndon is a 58-year-old female with a history of advanced stage IV lung cancer. She has almost whiteout of the left lung and mass obstructing the left upper lobe and entrance to the left lung. She has a history of coronary artery disease and CABG and COPD. She came to the hospital with worsening of her shortness of breath over the last 2 days or so. She does not use any oxygen at home. Now, she is on 4 liters nasal cannula. She has a cough, not able to bring up much phlegm. No fever, chills. No night sweats. No chest pain. No nausea or vomiting. The patient was evaluated in the emergency room. She had a CTA of the chest done which shows a small to moderate right pleural effusion, no evidence of pulmonary embolism. She has a left hemithorax which is the same compared to her previous CT scan of the chest. She has a small right lung nodule. She had an echocardiogram done. Her EF is 60% to 65%. She has moderate pulmonary hypertension with a RVSP of 50-60. Her CBC shows WBC count 11.6, hemoglobin 15, hematocrit 45.7, MCV 94, platelet count 275. INR 1.1. Sodium 129, potassium 3.6, chloride 88, CO2 of 32, BUN 21, creatinine 0.57. PAST MEDICAL HISTORY: Significant for: 1. History of advanced adenocarcinoma of the lung, stage T4N2M0, IIIB stage. She had concurrent chemoradiation therapy, followed by consolidation therapy. 2. History of COPD. 3. Coronary artery disease, status post CABG. 4. Hypertension. 5. Hyperlipidemia. MEDICATIONS: She is currently takin. Albuterol and Atrovent nebulizer treatment. 2. Tessalon 100 mg 3 times a day. 3. Dulcolax twice a day. 4. Clonidine 0.1 mg p.r.n. 5. Fentanyl patch 150 mcg q.72 hours. 6. Lasix 40 mg IV push. 7. Levaquin 750 mg a day. 8. Solu-Medrol 60 mg q.6 hours. 9. Zofran p.r.n. 10. Oxycodone for pain. ALLERGIES: NO KNOWN DRUG ALLERGIES. SOCIAL HISTORY: She has a history of smoking in the past. FAMILY HISTORY: Noncontributory. PHYSICAL EXAMINATION: GENERAL: A moderately built, well-nourished female mildly short of breath. VITAL SIGNS: She is on 4-5 liters nasal cannula and maintaining oxygen saturations of 93%, blood pressure 155/89, heart rate 81, respirations 17, temperature 98. HEENT: Pupils are equal and reactive to light. Oral mucosa and nasal mucosa are normal. NECK: Supple. JVP not raised. CHEST: Dull to percussion with almost no breath sounds on the left side and hyperresonant right chest. CARDIOVASCULAR: S1, S2 normal. ABDOMEN: Benign. EXTREMITIES: 1 to 2+ pedal edema. IMPRESSION: 1. Respiratory insufficiency. 2. Whiteout of the left lung due to advanced carcinoma and atelectasis. 3. Chronic obstructive pulmonary disease. 4. Right small to moderate pleural effusion. 5. History of coronary artery disease, status post coronary artery bypass grafting. PLAN: I discussed with the patient and her daughter at the bedside. The patient wants to remain a FULL CODE at this time; however, if she needs prolonged intubation, the daughter will make the decision. Currently, she is on 4-5 liters nasal cannula. If she is not able to maintain her saturation, we will going up on oxygen, then high flow oxygen and if needed, BiPAP therapy. If that fails, she will need intubation. We will continue aerosol treatments, IV Solu-Medrol and also start her on Mucomyst nebulizer treatments. She is also on antibiotics. Monitor her electrolytes. We will put her on heparin 5000 units q.12 hours for DVT prophylaxis. Further treatment will depend upon the course in the hospital. Thank you, Dr. Bender, for the consult. MD JAMI Garcia/jane , 07:01 PM , 07:12 PM
[2018-10-12] MEDS: Gabapentin 300 MG Capsule PO SCH (21:45)
[2018-10-12] MEDS: Heparin - SQ 10,000 UNITS/ML Vial SQ SCH (21:48)
[2018-10-12] MEDS: Senna/Docusate Sodium 8.6/50 MG Tablet PO SCH (21:48)
[2018-10-13] MEDS: MethylPREDNISolone Sod Succinate Inj 40 MG/ML Vial IV.PUSH SCH ×5 (00:17→23:31)
[2018-10-13] MEDS: Sod Chloride 0.9% Inj 1,000 ML IV.CONT SCH (07:29)
--- NOTE | 2018-10-13 07:40 | XR ---
EXAM DATE: 10/13/2018 7:36 AM EST AGE/SEX: 58 years / Female INDICATIONS: Shortness of breath. CLINICAL DATA: This is the patient's subsequent encounter. Patient reports that signs and symptoms h ave been present for 2 days and indicates a pain score of 0/10. MEDICAL/SURGICAL HISTORY: Chronic obstructive pulmonary disease. Congestive heart failure. My ocardial infarction. Lung cancer. CABG. Infusaport. COMPARISON: [facility] [place], CHEST 1V SINGLE AP, 10/12/2018. . FINDINGS: Complete opacification of the left hemithorax. Mild progressive patchy airspace disease in the right lower lobe. Cardiomediastinal contours are stable. Remainder of the exam is unchanged. CONCLUSION: 1. Complete opacification of the left hemithorax. 2. Progressive patchy airspace disease in the right lower lung zone. Electronically signed by: Wander Bingham MD Board Certified Radiologist 10/13/2018 7:38 AM EST
[2018-10-13 07:42] LABS: Anion Gap 9 meq/L (5-15); Blood Urea Nitrogen 18 mg/dL (7-18); Calcium 8.2 mg/dL (8.5-10.1); Carbon Dioxide 30.5 meq/L (21.0-32.0); Chloride 96 meq/L (98-107); Glomerular Filtration Rate Greater Than 89 mL/min (>89); Glucose,Random 104 mg/dL (74-106); Potassium 3.9 meq/L (3.5-5.1); Sodium 135 meq/L (136-145)
[2018-10-13 07:44] LABS: ABG Base Excess 5.2 mmol/L (-2-2); ABG PCO2 41 mmHg (38-42); ABG PO2 93 mmHg (61-120)
--- NOTE | 2018-10-13 09:23 | P.PNIM ---
Subjective Interval history: F/U SOBLucero Mcgarry called 2/2 resp distress after exertion. I ordered BiPAP, ABG, stat chest x-ray and transferred to ICU. Currently seen in CVICU, she feels better on BiPAP. BP also much improved systolic of 110. Seen with daughter Physical Exam Vital signs: Vital Signs 10/12/18 13:45 10/12/18 14:04 10/12/18 15:39 Temperature Pulse Rate 75 81 Respiratory Rate 18 17 17 Blood Pressure 152/68 H 155/89 H Pulse Oximetry 98 98 10/12/18 20:00 10/12/18 20:55 10/12/18 23:32 Temperature 98.0 F Pulse Rate 94 H 96 H 95 H Respiratory Rate 16 18 16 Blood Pressure 123/76 149/86 H Pulse Oximetry 93 L 93 L 97 10/13/18 01:15 10/13/18 03:19 10/13/18 07:07 Temperature Pulse Rate 98 H 98 H 93 H Respiratory Rate 22 18 20 Blood Pressure Pulse Oximetry 10/13/18 07:10 10/13/18 07:16 Temperature Pulse Rate 127 H 116 H Respiratory Rate Blood Pressure 219/127 H 238/104 H Pulse Oximetry 96 Intake & Output 10/12/18 10/13/18 10/13/18 18:59 06:59 18:59 Intake Total 350 / 350 0 / 0 1000 / 1000 Balance 350 / 350 0 / 0 1000 / 1000 Weight 49.89 kg Intake: IV 350 / 350 0 / 0 1000 / 1000 NS Inj 1,000 ML @ 100 mls/hr IV 0 / 0 1000 / 1000 .CONT .Q10H NÉSTOR Rx#:[id number] Azithromycin Inj 500 MG In NS 250 / 250 Inj 250 ML @ 250 mls/hr IV.SIG ONCE ONE Rx#:[id number] Maxipime Inj 1,000 MG In NS Inj 100 / 100 100 ML @ 200 mls/hr IV.SIG ONCE ONE Rx#:[id number] Other: # Voids 1 2 Weight On Admission 49.89 kg Narrative: GENERAL: Well-developed, well-nourished patient who is critically ill on BiPAP SKIN: Warm and dry. CARDIOVASCULAR: Regular rate and rhythm. RESPIRATORY: No accessory muscle use. Decreased breath sounds with improved expiratory wheeze GASTROINTESTINAL: Abdomen soft, non-tender, nondistended. MUSCULOSKELETAL: Extremities without clubbing, cyanosis but with improving bilateral lower extremity pitting edema. No obvious deformities. NEUROLOGICAL: Awake and alert. No obvious cranial nerve deficits. Motor grossly within normal limits. Five out of 5 muscle strength in the arms and legs. Normal speech. PSYCHIATRIC: Appropriate mood and affect; insight and judgment normal. Results Labs CBC & Chem 7: 10/12/18 08:00 10/13/18 06:30 Imaging Imaging: Impressions Chest CTA 10/12/18 11:24 CONCLUSION: 1. Compared to the prior exam, there is a new small to moderate right-sided pleural effusion. 2. There is no evidence of pulmonary embolism. 3. There has been no significant change in the overall appearance of the left hemithorax compared to the prior exam. 4. There is some new compressive atelectasis in the right lung base. 5. There are multiple stable nonspecific right-sided pulmonary nodules. Chest X-Ray 10/13/18 00:00 CONCLUSION: 1. Complete opacification of the left hemithorax. 2. Progressive patchy airspace disease in the right lower lung zone. Assessment and Plan Plan This is a 58-year-old female with history of stage IV lung cancer on Keytruda, coronary artery disease status post IA and CABG and COPD. She returns to the emergency department because of worsening shortness of breath. Denies fever, chills. She has chronic productive cough of yellow sputum. She also reports intermittent bilateral lower extremity swelling and was evaluated in the emergency department 2 days ago and was advised to increase Lasix. Denies leg pain. CHEST X-RAY independently reviewed by me showed complete opacification of the left hemithorax and parenchymal changes on the right base. Chest CTA shows new small to moderate right-sided pleural effusion. No evidence of pulmonary embolism. No significant change in the overall appearance of the left hemothorax. There is some new compressive atelectasis in the right lung base and multiple stable nonspecific right-sided pulmonary nodules. BNP is also elevated Acute hypoxemic respiratory failure. ABG pH of 7.46 PCO2 41 PO2 of 93 on nonrebreather. Chest x-ray shows worsening patchy airspace disease in the right lower lung zone, i independently interpreted by me. CTA shows no PE with atelectasis and moderate pleural effusion on the right lung. Continue BiPAP. Incentive spirometry. Suspected new onset heart failure. EF 60% we will continue diuresis with IV Lasix with potassium supplementation and monitor renal function. CHF education , I/L and monitor weight COPD exac. Continue scheduled nebulization, IV steroids and Levaquin. Obtain sputum culture Elevated BP. No history of hypertension. Patient on Lasix. As needed Vasotec and clonidine Hyponatremia likely from lung cancer per the fluid restriction. Monitor consider NaCl tabs DVT prophylaxis with SCD and early ambulation hold pharmacological prophylaxis may need thoracentesis Progress Note: Quality VTE Deep Vein Thrombosis/Pulmonary Embolism Present on Admission: No
[2018-10-13] MEDS: levoFLOXacin 750 MG Tablet PO SCH (09:49)
[2018-10-13] MEDS: Gabapentin 300 MG Capsule PO SCH ×2 (09:49→21:51)
[2018-10-13] MEDS: Heparin - SQ 10,000 UNITS/ML Vial SQ SCH ×2 (09:49→21:51)
[2018-10-13] MEDS: Senna/Docusate Sodium 8.6/50 MG Tablet PO SCH ×2 (09:50→21:52)
[2018-10-13] MEDS: LORazepam 0.5 MG Tablet PO PRN (19:17)
--- NOTE | 2018-10-13 19:31 | P.PNPL ---
Subjective Interval history: 58 YOWF with Advanced lung ca, white out left lung Worsening sob On BIPAP denies CP No fever Physical Exam Vital signs: Vital Signs 10/12/18 20:00 10/12/18 20:55 10/12/18 23:32 Temperature 98.0 F Pulse Rate 94 H 96 H 95 H Respiratory Rate 16 18 16 Blood Pressure 123/76 149/86 H Pulse Oximetry 93 L 93 L 97 10/13/18 01:15 10/13/18 03:19 10/13/18 07:07 Temperature Pulse Rate 98 H 98 H 93 H Respiratory Rate 22 18 20 Blood Pressure Pulse Oximetry 10/13/18 07:10 10/13/18 07:16 10/13/18 07:30 Temperature Pulse Rate 127 H 116 H Respiratory Rate Blood Pressure 219/127 H 238/104 H Pulse Oximetry 96 97 10/13/18 07:50 10/13/18 08:00 10/13/18 09:30 Temperature 96.3 F L Pulse Rate 109 H Respiratory Rate 22 Blood Pressure 125/84 Pulse Oximetry 97 97 99 10/13/18 11:00 10/13/18 12:00 10/13/18 15:00 Temperature 97.5 F L Pulse Rate 96 H 105 H 93 H Respiratory Rate 21 21 19 Blood Pressure 112/70 Pulse Oximetry 98 94 L 92 L 10/13/18 16:00 10/13/18 16:25 10/13/18 16:38 Temperature 97.4 F L Pulse Rate 102 H 111 H Respiratory Rate 22 24 Blood Pressure 135/86 Pulse Oximetry 92 L 94 L Intake & Output 10/13/18 10/13/18 10/14/18 06:59 18:59 06:59 Intake Total 0 / 0 1500 / 1500 Output Total 700 / 700 Balance 0 / 0 800 / 800 Intake: IV 0 / 0 1000 / 1000 NS Inj 1,000 ML @ 100 mls/hr IV 0 / 0 1000 / 1000 .CONT .Q10H NÉSTOR Rx#:[id number] Oral 500 / 500 Output: Urine 700 / 700 Other: # Voids 2 3 # Incontinent Voids 1 # Urine Diapers 1 Date of Last Bowel Movement 10/13/18 # Bowel Movements 1 GENERAL: MBMN WF mod sob SKIN: Warm and dry. HEAD: Normocephalic. EYES: No scleral icterus. No injection or drainage. NECK: Supple, trachea midline. No JVD or lymphadenopathy. CARDIOVASCULAR: Regular rate and rhythm without murmurs, gallops, or rubs. RESPIRATORY: Breath sounds equal bilaterally. No accessory muscle use. No BS left GASTROINTESTINAL: Abdomen soft, non-tender, nondistended. MUSCULOSKELETAL: No cyanosis, or edema. BACK: Nontender without obvious deformity. No CVA tenderness. Assessment and Plan - Plan IMPRESSION: 1. Respiratory insufficiency. 2. Whiteout of the left lung due to advanced carcinoma and atelectasis. 3. Chronic obstructive pulmonary disease. 4. Right small to moderate pleural effusion. 5. History of coronary artery disease, status post coronary artery bypass grafting. PLAN: Cont BIPAPA keep sat >90% IV Solumedrol Cont Abx Aerosol nebs If gets worse will need vent support Pt agreeable for vent if needed
[2018-10-14] MEDS: MethylPREDNISolone Sod Succinate Inj 40 MG/ML Vial IV.PUSH SCH ×3 (05:16→17:46)
[2018-10-14] MEDS: LORazepam 0.5 MG Tablet PO PRN ×2 (05:18→17:47)
[2018-10-14 05:47] LABS: Anion Gap 8 meq/L (5-15); Blood Urea Nitrogen 26 mg/dL (7-18); Calcium 8.9 mg/dL (8.5-10.1); Carbon Dioxide 31.1 meq/L (21.0-32.0); Chloride 97 meq/L (98-107); Glomerular Filtration Rate Greater Than 89 mL/min (>89); Glucose,Random 101 mg/dL (74-106); Magnesium 2.4 mg/dL (1.5-2.5); Potassium 4.7 meq/L (3.5-5.1); Sodium 136 meq/L (136-145)
[2018-10-14] MEDS: Heparin - SQ 10,000 UNITS/ML Vial SQ SCH ×2 (09:16→21:27)
[2018-10-14] MEDS: levoFLOXacin 750 MG Tablet PO SCH (09:16)
[2018-10-14] MEDS: Gabapentin 300 MG Capsule PO SCH (09:16)
[2018-10-14] MEDS: Senna/Docusate Sodium 8.6/50 MG Tablet PO SCH (09:17)
--- NOTE | 2018-10-14 09:59 | P.PNIM ---
Subjective Interval history: Follow-up respiratory failure. Still on BiPAP with 10% oxygen. Easily desaturates. Physical Exam Vital signs: Vital Signs 10/13/18 11:00 10/13/18 12:00 10/13/18 15:00 Temperature 97.5 F L Pulse Rate 96 H 105 H 93 H Respiratory Rate 21 21 19 Blood Pressure 112/70 Pulse Oximetry 98 94 L 92 L 10/13/18 16:00 10/13/18 16:25 10/13/18 16:38 Temperature 97.4 F L Pulse Rate 102 H 111 H Respiratory Rate 22 24 Blood Pressure 135/86 Pulse Oximetry 92 L 94 L 10/13/18 19:00 10/13/18 19:15 10/13/18 20:00 Temperature 98.2 F Pulse Rate 113 H 115 H Respiratory Rate 18 Blood Pressure 139/91 H Pulse Oximetry 98 98 10/13/18 21:14 10/13/18 21:15 10/13/18 23:00 Temperature Pulse Rate 94 H 98 H Respiratory Rate 25 H Blood Pressure Pulse Oximetry 94 L 10/13/18 23:14 10/14/18 01:18 10/14/18 03:00 Temperature 97.6 F Pulse Rate 100 H 97 H Respiratory Rate 17 Blood Pressure 109/89 Pulse Oximetry 98 94 L 10/14/18 03:23 10/14/18 04:37 10/14/18 04:39 Temperature 97.6 F Pulse Rate 100 H 111 H Respiratory Rate 17 25 H Blood Pressure 109/89 Pulse Oximetry 98 96 10/14/18 07:00 10/14/18 08:05 10/14/18 09:19 Temperature 97.6 F Pulse Rate 100 H 114 H Respiratory Rate 19 11 L Blood Pressure 125/83 Pulse Oximetry 93 L 92 L Intake & Output 10/13/18 10/14/18 10/14/18 18:59 06:59 18:59 Intake Total 1500 / 1500 100 / 100 Output Total 700 / 700 300 / 300 Balance 800 / 800 -200 / -200 Weight 49.5 kg Intake: IV 1000 / 1000 NS Inj 1,000 ML @ 100 mls/hr IV 1000 / 1000 .CONT .Q10H NÉSTOR Rx#:[id number] Oral 500 / 500 100 / 100 Output: Urine 700 / 700 300 / 300 Other: # Voids 3 3 # Incontinent Voids 1 # Urine Diapers 1 Date of Last Bowel Movement 10/13/18 10/13/18 # Bowel Movements 1 Narrative: GENERAL: Well-developed, well-nourished patient who is critically ill on BiPAP SKIN: Warm and dry. CARDIOVASCULAR: Regular rate and rhythm. RESPIRATORY: No accessory muscle use. Decreased breath sounds with improved expiratory wheeze GASTROINTESTINAL: Abdomen soft, non-tender, nondistended. MUSCULOSKELETAL: Extremities without clubbing, cyanosis but with improving bilateral lower extremity pitting edema. No obvious deformities. NEUROLOGICAL: Awake and alert. No obvious cranial nerve deficits. Motor grossly within normal limits. Five out of 5 muscle strength in the arms and legs. Normal speech. Results Labs CBC & Chem 7: 10/12/18 08:00 10/14/18 04:11 Labs: Microbiology 10/13/18 00:20 Sputum - Expectorated Sputum Gram Stain - Final Imaging Imaging: ITS Impressions Chest CTA 10/12/18 11:24 CONCLUSION: 1. Compared to the prior exam, there is a new small to moderate right-sided pleural effusion. 2. There is no evidence of pulmonary embolism. 3. There has been no significant change in the overall appearance of the left hemithorax compared to the prior exam. 4. There is some new compressive atelectasis in the right lung base. 5. There are multiple stable nonspecific right-sided pulmonary nodules. Chest X-Ray 10/13/18 00:00 CONCLUSION: 1. Complete opacification of the left hemithorax. 2. Progressive patchy airspace disease in the right lower lung zone. Assessment and Plan Plan This is a 58-year-old female with history of stage IV lung cancer on Keytruda, coronary artery disease status post VA and CABG and COPD. She returns to the emergency department because of worsening shortness of breath. Denies fever, chills. She has chronic productive cough of yellow sputum. She also reports intermittent bilateral lower extremity swelling and was evaluated in the emergency department 2 days ago and was advised to increase Lasix. Denies leg pain. CHEST X-RAY independently reviewed by me showed complete opacification of the left hemithorax and parenchymal changes on the right base. Chest CTA shows new small to moderate right-sided pleural effusion. No evidence of pulmonary embolism. No significant change in the overall appearance of the left hemothorax. There is some new compressive atelectasis in the right lung base and multiple stable nonspecific right-sided pulmonary nodules. BNP is also elevated Acute hypoxemic respiratory failure. ABG pH of 7.46 PCO2 41 PO2 of 93 on nonrebreather. Chest x-ray shows worsening patchy airspace disease in the right lower lung zone. CTA shows no PE with atelectasis and moderate pleural effusion on the right lung. Unable to wean still requiring 100% oxygen. Continue BiPAP. Incentive spirometry. Suspected new onset heart failure. EF 60% we will continue diuresis with IV Lasix with potassium supplementation and monitor renal function. CHF education , I/L and monitor weight COPD exac. Continue scheduled nebulization, IV steroids and Levaquin. Obtain sputum culture Elevated BP. No history of hypertension. Patient on Lasix. As needed Vasotec and clonidine Hyponatremia likely from lung cancer per the fluid restriction. Monitor consider NaCl tabs Anxiety. Vistaril and Ativan as needed DVT prophylaxis with SCD and early ambulation hold pharmacological prophylaxis may need thoracentesis Patient is critically ill will keep in ICU. High likelihood of respiratory decompensation requiring intubation and mechanical ventilation Progress Note: Quality VTE Deep Vein Thrombosis/Pulmonary Embolism Present on Admission: No
[2018-10-14] MEDS ORDERED: Potassium Chloride 25 MEQ Effervescent Tablet ONE (10:09)
[2018-10-14] MEDS: Potassium Bicarbonate 25 MEQ Effervescent Tablet PO SCH (10:25)
--- NOTE | 2018-10-14 20:51 | P.PNPL ---
Subjective Interval history: 58 YOWF with Advanced lung ca, white out left lung Worsening sob On BIPAP denies CP No fever Desaturates easily, on 100% Fi02 but no distress Physical Exam Vital signs: Vital Signs 10/13/18 21:14 10/13/18 21:15 10/13/18 23:00 Temperature Pulse Rate 94 H 98 H Respiratory Rate 25 H Blood Pressure Pulse Oximetry 94 L 10/13/18 23:14 10/14/18 01:18 10/14/18 03:00 Temperature 97.6 F Pulse Rate 100 H 97 H Respiratory Rate 17 Blood Pressure 109/89 Pulse Oximetry 98 94 L 10/14/18 03:23 10/14/18 04:37 10/14/18 04:39 Temperature 97.6 F Pulse Rate 100 H 111 H Respiratory Rate 17 25 H Blood Pressure 109/89 Pulse Oximetry 98 96 10/14/18 07:00 10/14/18 08:05 10/14/18 09:19 Temperature 97.6 F Pulse Rate 100 H 114 H Respiratory Rate 19 11 L Blood Pressure 125/83 Pulse Oximetry 93 L 92 L 10/14/18 09:20 10/14/18 11:00 10/14/18 14:16 Temperature 97.1 F L Pulse Rate 114 H Respiratory Rate 22 Blood Pressure 125/96 H Pulse Oximetry 91 L 92 L 92 L 10/14/18 15:00 10/14/18 16:15 Temperature 97.7 F Pulse Rate 102 H 114 H Respiratory Rate 22 21 Blood Pressure 140/96 H Pulse Oximetry 90 L Intake & Output 10/14/18 10/14/18 10/15/18 06:59 18:59 06:59 Intake Total 100 / 100 250 / 250 Output Total 300 / 300 500 / 500 Balance -200 / -200 -250 / -250 Weight 49.5 kg Intake: Oral 100 / 100 250 / 250 Output: Urine 300 / 300 500 / 500 Other: # Voids 3 Date of Last Bowel Movement 10/13/18 GENERAL: MBMN Mild sob SKIN: Warm and dry. HEAD: Normocephalic. EYES: No scleral icterus. No injection or drainage. NECK: Supple, trachea midline. No JVD or lymphadenopathy. CARDIOVASCULAR: Regular rate and rhythm without murmurs, gallops, or rubs. RESPIRATORY: Breath sounds equal bilaterally. No accessory muscle use. no BS left GASTROINTESTINAL: Abdomen soft, non-tender, nondistended. MUSCULOSKELETAL: No cyanosis, or edema. BACK: Nontender without obvious deformity. No CVA tenderness. Assessment and Plan - Plan IMPRESSION: 1. Respiratory insufficiency. 2. Whiteout of the left lung due to advanced carcinoma and atelectasis. 3. Chronic obstructive pulmonary disease. 4. Right small to moderate pleural effusion. 5. History of coronary artery disease, status post coronary artery bypass grafting. PLAN: Cont BIPAP, Fi02 100% keep sat >90% IV Solumedrol Cont Abx Aerosol nebs If gets worse will need vent support Pt agreeable for vent if needed
[2018-10-15] MEDS: Senna/Docusate Sodium 8.6/50 MG Tablet PO SCH ×2 (00:26→08:53)
[2018-10-15] MEDS: Potassium Bicarbonate 25 MEQ Effervescent Tablet PO SCH (00:28)
[2018-10-15] MEDS: Gabapentin 300 MG Capsule PO SCH ×2 (00:29→08:53)
[2018-10-15] MEDS: MethylPREDNISolone Sod Succinate Inj 40 MG/ML Vial IV.PUSH SCH ×3 (00:47→16:22)
[2018-10-15 04:57] LABS: Carbon Dioxide 31.3 meq/L (21.0-32.0); Magnesium 2.6 mg/dL (1.5-2.5); Potassium 5.3 meq/L (3.5-5.1)
[2018-10-15] MEDS ORDERED: Sod Chloride 0.9% Inj 1,000 ML IV.SIG SCH (08:00)
[2018-10-15] MEDS: levoFLOXacin 750 MG Tablet PO SCH (08:53)
[2018-10-15] MEDS: Heparin - SQ 10,000 UNITS/ML Vial SQ SCH (08:53)
--- NOTE | 2018-10-15 09:55 | P.PNIM ---
Subjective Interval history: Follow-up acute respiratory failure. Patient states she is breathing better still on BiPAP with 100% FiO2. Noted decreased urine output 150 mL over night with elevated BUN, creatinine and potassium. Discussed with nurse to discontinue potassium and IV Lasix. She also has decreased oral intake secondary to BiPAP. Physical Exam Vital signs: Vital Signs 10/14/18 11:00 10/14/18 14:16 10/14/18 15:00 Temperature 97.1 F L 97.7 F Pulse Rate 114 H 102 H Respiratory Rate 22 22 Blood Pressure 125/96 H 140/96 H Pulse Oximetry 92 L 92 L 90 L 10/14/18 16:10 10/14/18 16:15 10/14/18 19:00 Temperature 97.9 F Pulse Rate 114 H 117 H Respiratory Rate 21 18 Blood Pressure 119/82 Pulse Oximetry 89 L 92 L 10/14/18 21:20 10/14/18 21:28 10/14/18 22:30 Temperature Pulse Rate 100 H Respiratory Rate 15 Blood Pressure Pulse Oximetry 90 L 89 L 10/14/18 23:00 10/15/18 00:16 10/15/18 03:00 Temperature 97.8 F 97.9 F Pulse Rate 115 H 112 H Respiratory Rate 20 20 Blood Pressure 120/80 135/92 H Pulse Oximetry 97 97 95 10/15/18 03:29 10/15/18 03:39 10/15/18 07:00 Temperature 97.4 F L Pulse Rate 110 H 108 H Respiratory Rate 24 24 Blood Pressure 127/90 Pulse Oximetry 96 92 L 10/15/18 08:00 10/15/18 09:50 Temperature Pulse Rate 115 H Respiratory Rate 21 Blood Pressure Pulse Oximetry 92 L Intake & Output 10/14/18 10/15/18 10/15/18 18:59 06:59 18:59 Intake Total 250 / 250 100 / 100 Output Total 500 / 500 200 / 200 Balance -250 / -250 -100 / -100 Weight 50 kg Intake: Oral 250 / 250 100 / 100 Output: Urine 500 / 500 200 / 200 Other: Date of Last Bowel Movement 10/13/18 10/13/18 10/13/18 Narrative: GENERAL: Well-developed, well-nourished patient who is critically ill on BiPAP SKIN: Warm and dry. CARDIOVASCULAR: Regular rate and rhythm. RESPIRATORY: No accessory muscle use. Decreased breath sounds with improved expiratory wheeze. Bilateral rhonchi GASTROINTESTINAL: Abdomen soft, non-tender, nondistended. MUSCULOSKELETAL: Extremities without clubbing, cyanosis but with improving bilateral lower extremity pitting edema. No obvious deformities. NEUROLOGICAL: Awake and alert. No obvious cranial nerve deficits. Motor grossly within normal limits. Five out of 5 muscle strength in the arms and legs. Normal speech. Results Labs CBC & Chem 7: 10/12/18 08:00 10/15/18 03:28 Labs: Microbiology 10/13/18 00:20 Sputum - Expectorated Sputum Gram Stain - Final 10/13/18 00:20 Sputum - Expectorated Sputum Sputum Culture - Preliminary Moderate growth normal respiratory won at 24 hours Assessment and Plan Plan This is a 58-year-old female with history of stage IV lung cancer on Keytruda, coronary artery disease status post [place] and CABG and COPD. She returns to the emergency department because of worsening shortness of breath. Denies fever, chills. She has chronic productive cough of yellow sputum. She also reports intermittent bilateral lower extremity swelling and was evaluated in the emergency department 2 days ago and was advised to increase Lasix. Denies leg pain. CHEST X-RAY independently reviewed by me showed complete opacification of the left hemithorax and parenchymal changes on the right base. Chest CTA shows new small to moderate right-sided pleural effusion. No evidence of pulmonary embolism. No significant change in the overall appearance of the left hemothorax. There is some new compressive atelectasis in the right lung base and multiple stable nonspecific right-sided pulmonary nodules. BNP is also elevated Acute hypoxemic respiratory failure. ABG pH of 7.46 PCO2 41 PO2 of 93 on nonrebreather. Chest x-ray shows worsening patchy airspace disease in the right lower lung zone. CTA shows no PE with atelectasis and moderate pleural effusion on the right lung. Unable to wean still requiring 100% oxygen. Continue BiPAP. Incentive spirometry. Discussed with pulmonary, do not think bronchoscopy will be of benefit. Patient already had 2 bronchoscopies. Recommended palliative care Suspected new onset heart failure. EF 60% we will continue diuresis with IV Lasix with potassium supplementation and monitor renal function. CHF education , I/L and monitor weight. Lasix discontinued secondary to azotemia, hyperkalemia and decreased urine output. Will give IV hydration NS for 1 L COPD exac. Continue scheduled nebulization, IV steroids and Levaquin. Ordered sputum culture Elevated BP. No history of hypertension. Patient on Nitropaste as needed Vasotec and clonidine Hyponatremia likely from lung cancer per the fluid restriction. Monitor consider NaCl tabs Anxiety. Vistaril and Ativan as needed DVT prophylaxis with subcu heparin, SCD and early ambulation Patient is critically ill will keep in ICU. High likelihood of respiratory decompensation requiring intubation and mechanical ventilation Progress Note: Quality VTE Deep Vein Thrombosis/Pulmonary Embolism Present on Admission: No
--- NOTE | 2018-10-15 13:47 | P.CONPAL ---
Consult Service: Palliative Care Requesting Physician: Walter Bender Reason for Consult: a. To assist with evaluation and management of symptoms including: Dyspnea. b. To assist medical decision maker(s) with: better understanding of current medical conditions; weighing benefits/burdens of medical treatment options; making medical treatment decisions. Primary Care Provider: Bianca Yuan History of Present Illness History of Present Illness: Mrs. Herndon is a 58 y/o female with a medical history significant for progressive adenocarcinoma of lung, emphysema/COPD, CAD, AR status post CABG and hypertension. Patient presented to ED via EMS on 10/12/18 endorsing worsening shortness of breath. Laboratory workup revealing WBC 11.6, Hgb 15.0, sodium 129, BUN/creatinine 21/0.57. BNP 153. Chest x-ray revealing complete opacification of the left hemithorax and developing parenchymal changes in the right base. Chest CTA revealing small to moderate right-sided pleural effusion. Patient was admitted for further monitoring and management. Pulmonology consulted on 10/12 for respiratory failure and pleural effusions. Patient with a diagnosis of left lower lobe adenocarcinoma of the lung diagnosed in November 2016. She is under the care of oncology Dr. Lea. As per oncology's notes, patient at the time of presentation had radiographic evidence of T4 N2 M0; stage IIIB disease. She was treated with chemoradiotherapy followed by consolidation chemotherapy. Restaging scans from July [address] scan from August 2017 indicating disease recurrence were pleural-based metastatic some possibly contralateral lung metastasis as well. Image guided biopsies of 1 of the pharmaceutical sales representative contralateral lung lesions confirm non- small cell carcinoma of lung primary (adenocarcinoma). Patient was initiated on palliative systemic therapy with carboplatin, Alimta and Avastin in September 2017. Restaging imaging studies indicated fair response to the therapy which was discontinued secondary to adverse effects. Restaging CT scan of thorax and abdomen in September 05 indicating clear disease progression with increased in number and size of the right side pulmonary nodules. The left hemithorax was near completely cristopher out due to consolidative changes with likely solid tumor components as well. She was a started on Keytruda as a single agent for which she received 1 treatment. Patient most recent bronchoscopy 09/09/18 for occluded left mainstream bronchus and dense infiltrates/consolidation of the left lung. Palliative care consulted for further clarifications of goals of care. Case discussed with pulmonology Dr. Chand and Dr. Bender. Patient with progression of adenocarcinoma while on multiple lines of treatment. Patient unlikely to benefit from any invasive interventions such as additional bronchoscopy given progression of illness. Comfort directed care appropriate. Patient seen in cardiac ICU. Ill looking, frail sitting up in bed in moderate distress secondary to increased work of breathing. BiPAP at 100% FiO2, oxygen saturation in the high 80s. Patient tachycardic with heart rate in the 110s. Increased work of breathing, using accessory muscles noted. Patient alert and oriented x self, place and situation. Communicating by nodding head to yes/no questions and by mouthing words. Worsening renal function, BUN/creatinine 3. Potassium 5.3. Patient denies pain at time of my visit but is endorsing shortness of breath at rest and on minimal exertion. Daughter Camicia at bedside. Patient, daughter with a good understanding of patient's clinical condition in the setting of progressive lung cancer. Daughter reports that patient has been having difficulty with systemic treatment as evidenced by profound debility and weight loss. Patient reports feeling very weak, debilitated. Endorsing feeling tired. Shared concerns of patient's clinical condition in the setting of progressive lung cancer. Reviewed continuation of aggressive management to include intubation and mechanical ventilation. Reviewed that patient is a high risk for prolonged intubation/mechanical ventilation in the setting of progressive lung cancer. Daughter verbalized that patient has made her wishes very clear, living will available. Patient, daughter electing to pursue comfort-directed care given overall poor prognosis and profound symptom burden. Goal is to transfer to hospice care center for discontinuation of BiPAP. Case has been discussed with attending Dr. Bender and pulmonology Dr. Chand. Function/Cognitive Trajectory: Patient residing with brother in private home prior to this acute event. Progressive debility, fatigue and weight loss. Mostly independent with all ADLs. No cognitive deficit reported. Review of Systems Constitutional: Reports fatigue, Reports lack of energy, Reports weakness, Reports weight loss, Denies fever(s) Eyes: Denies discharge Ears, Nose, Mouth, and Throat: Denies abnormal hearing, Denies difficulty swallowing, Denies nasal congestion, Denies nasal discharge Cardiovascular: Reports chest pain, Reports chest pain with activity, Reports fast heart rate, Reports leg swelling, Reports shortness of breath Respiratory: Reports shortness of breath, Reports shortness of breath with activity, Denies cough, Denies excessive phlegm production Gastrointestinal: Denies abdominal pain, Denies black, tarry stools, Denies nausea, Denies vomiting Genitourinary: Denies blood in urine Musculoskeletal: Reports decreased muscle mass Skin/Breast: Denies lesions, Denies rash Neurologic: Denies behavioral changes, Denies memory loss Psychiatric: Reports anxiety, Reports depression, Denies confusion PMF - History History Provided By: Patient, Family Member - Medical History Medical History: Medical History (Last Updated 10/15/18 @ 13:36 by Shanti Nj APRN) Adenocarcinoma of lung COPD (chronic obstructive pulmonary disease) Coronary artery disease History of AR (myocardial infarction) History of kidney stones Hypercholesterolemia Hypertension FH: CABG (coronary artery bypass surgery) - Surgical History Surgical History: Surgical History (Last Reviewed 10/14/18 @ 08:23 by Bryon Martinez, PT) Hx of CABG - Family History Family History: Family History (Last Updated 10/15/18 @ 13:37 by Shanti Nj APRN) Grandparent Esophageal cancer - Social History I have reviewed the patient's Social History: Yes - Tobacco History Second Hand Smoke Exposure: Yes Tobacco Use In Past 30 Days: Yes Smoking Status: Former smoker Tobacco Type: Cigarettes Packs Per Day: 0.5 Years Smoked: 35 - Alcohol History How Often Do You Have a Drink Containing Alcohol: Never - Substance Use History Substance History: No History of Abuse - Travel History History of Recent Travel: No Recent Travel in the [place] Within the Last 8 Weeks: No Recent Travel Out of the Country Within the Last 8 Weeks: No - Immunization History Tetanus Immunization: Unsure Medications and Allergies Active Medications: Active Medications Acetaminophen (Tylenol) 650 mg PO Q4H PRN PRN Reason: Temp > 100.4 Acetylcysteine (Mucomyst 20% Neb) 2 ml NEB Q6HR NEB CHELE Last Admin: 10/15/18 09:55 Dose: Not Given Al Hydroxide/Mg Hydroxide (Milk Of Magnesia Liq) 30 ml PO Q12H PRN PRN Reason: Mild Constipation Albuterol (Albuterol Neb (Prn)) 2.5 mg NEB Q2HR NEB PRN PRN Reason: SHORTNESS OF BREATH Last Admin: 10/13/18 07:07 Dose: 2.5 mg Albuterol (Duoneb Neb (Chele)) 1 ampul NEB Q6HR NEB CHELE Last Admin: 10/15/18 09:49 Dose: 1 ampul Benzonatate (Tessalon Perles) 100 mg PO TID PRN PRN Reason: COUGH Bisacodyl (Dulcolax Supp) 10 mg RECTAL DAILY PRN PRN Reason: SEVERE CONSITIPATION Clonidine HCl (Catapres) 0.1 mg PO Q6H PRN PRN Reason: SEE LABEL COMMENTS Dexamethasone (Decadron) 1 mg PO DAILY [facility] Enalaprilat (Vasotec Inj) 1.25 mg IV.PUSH Q6H PRN PRN Reason: SEE LABEL COMMENTS Last Admin: 10/14/18 18:17 Dose: 1.25 mg Fentanyl (Duragesic 100 Mcg Patch.72hr) 1 patch T-DERMAL Q72H [facility] Last Admin: 10/13/18 18:15 Dose: 1 patch Fentanyl (Duragesic 50 Mcg Patch.72hr) 1 patch T-DERMAL Q72H [facility] Last Admin: 10/13/18 18:16 Dose: 1 patch Furosemide (Lasix Inj) 40 mg IV.PUSH BID@0900,1800 [facility] Last Admin: 10/14/18 17:46 Dose: 40 mg Gabapentin (Neurontin) 300 mg PO BID [facility] Last Admin: 10/15/18 08:53 Dose: 300 mg Heparin Sodium (Porcine) (Heparin Inj) 5,000 units SQ Q12HR [facility] Last Admin: 10/15/18 08:53 Dose: 5,000 units Hydroxyzine Pamoate (Vistaril) 25 mg PO Q6H PRN PRN Reason: ANXIETY Last Admin: 10/14/18 00:49 Dose: 25 mg Sodium Chloride (Ns Inj) 1,000 mls @ 50 mls/hr IV.SIG .Q20H [facility] Last Admin: 10/15/18 08:00 Dose: 50 mls/hr Lactulose (Lactulose Liq) 30 ml PO DAILY PRN PRN Reason: SEVERE CONSITIPATION Levofloxacin (Levaquin) 750 mg PO DAILY [facility] Stop: 10/18/18 01:00 Last Admin: 10/15/18 08:53 Dose: 750 mg Lorazepam (Ativan) 0.5 mg PO Q8H PRN PRN Reason: AGITATION Last Admin: 10/14/18 17:47 Dose: 0.5 mg Methylprednisolone Sodium Succinate (Solumedrol Inj) 60 mg IV.PUSH Q6H [facility] Last Admin: 10/15/18 05:25 Dose: 60 mg Nitroglycerin (Nitro-Bid 2% Oint) 1 inch TOPICAL Q8H [facility] Last Admin: 10/15/18 08:53 Dose: 1 inch Ondansetron HCl (Zofran Inj) 4 mg IV.PUSH Q6H PRN PRN Reason: NAUSEA OR VOMITING Oxycodone HCl (Roxicodone) 10 mg PO ONCE [facility] Oxycodone HCl (Roxicodone) 15 mg PO Q4H PRN PRN Reason: PAIN SCALE 1-10 Last Admin: 10/13/18 16:22 Dose: 15 mg Potassium Bicarbonate (Effer-K) 25 meq PO BID [facility] Last Admin: 10/15/18 00:28 Dose: Not Given Senna/Docusate Sodium (Haylee-Colace) 1 tab PO BID [facility] Last Admin: 10/15/18 08:53 Dose: 1 tab Sennosides (Senokot) 17.2 mg PO Q12H PRN PRN Reason: Moderate Constipation Sodium Chloride (Ns Flush) 2 ml IV.FLUSH BID [facility] Last Admin: 10/15/18 08:55 Dose: 2 ml Sodium Chloride (Ns Flush) 2 ml IV.FLUSH PRN PRN PRN Reason: FLUSH AFTER USING IV ACCESS Allergies Allergy/AdvReac Type Severity Reaction Status Date / Time No Known Allergies Allergy Verified 09/09/18 12:52 Home Medications Medication Instructions Recorded Confirmed Type albuterol sulfate 2 puff INHALATION QID PRN 09/09/18 10/12/18 History benzonatate 100 mg PO TID PRN 09/09/18 10/12/18 History fentanyl 1 patch TRANSDERMAL Q72H 09/09/18 10/12/18 History fentanyl 1 patch TRANSDERMAL Q72H 09/09/18 10/12/18 History gabapentin 300 mg PO BID 09/09/18 10/12/18 History oxycodone 15 mg PO Q4-6H PRN 09/09/18 10/12/18 History dexamethasone 1 mg PO DAILY 10/10/18 10/12/18 History Advance Directives Living Will: Yes Healthcare Surrogate: Yes Health Care Surrogate Name and Number: Sandra Serrato Power of Parts Data Writer: Yes Power of Parts Data Writer Relationship to Patient: Children Documented care wishes: Living will with standard verbiage as it pertains to end-stage condition, terminal condition. Physical Exam Vital Signs: Vital Signs - 24 hr 10/14/18 14:16 10/14/18 15:00 10/14/18 16:10 Temperature 97.7 F Pulse Rate 102 H Respiratory Rate 22 Blood Pressure 140/96 H Pulse Oximetry 92 L 90 L 89 L 10/14/18 16:15 10/14/18 19:00 10/14/18 21:20 Temperature 97.9 F Pulse Rate 114 H 117 H Respiratory Rate 21 18 Blood Pressure 119/82 Pulse Oximetry 92 L 90 L 10/14/18 21:28 10/14/18 22:30 10/14/18 23:00 Temperature 97.8 F Pulse Rate 100 H 115 H Respiratory Rate 15 20 Blood Pressure 120/80 Pulse Oximetry 89 L 97 10/15/18 00:16 10/15/18 03:00 10/15/18 03:29 Temperature 97.9 F Pulse Rate 112 H Respiratory Rate 20 Blood Pressure 135/92 H Pulse Oximetry 97 95 96 10/15/18 03:39 10/15/18 07:00 10/15/18 07:25 Temperature 97.4 F L Pulse Rate 110 H 108 H Respiratory Rate 24 24 Blood Pressure 127/90 Pulse Oximetry 92 L 90 L 10/15/18 08:00 10/15/18 09:50 10/15/18 11:00 Temperature 97.0 F L Pulse Rate 115 H 116 H Respiratory Rate 21 24 Blood Pressure 122/80 Pulse Oximetry 92 L 88 L I&O: Intake & Output 10/13/18 10/14/18 10/15/18 10/16/18 06:59 06:59 06:59 06:59 Intake Total 350 / 350 1600 / 1600 350 / 350 Output Total 1000 / 1000 700 / 700 Balance 350 / 350 600 / 600 -350 / -350 Weight 49.89 kg 49.5 kg 50 kg Physical Exam: CONSTITUTIONAL/GENERAL: This is a cachectic, ill looking elderly female sitting up in bed in moderate distress secondary to increased work of breathing. TUBES/LINES/DRAINS: PIV, BiPAP. SCDs. SKIN: No jaundice, rashes, or lesions. Ecchymoses on upper extremities. No wounds seen anteriorly. Skin temperature appropriate. Not diaphoretic. HEAD: Atraumatic. Normocephalic. EYES: Pupils equal and round and reactive. Extraocular motions intact. No scleral icterus. No injection or drainage. Fundi not examined. ENT: Hearing grossly normal. Nose without bleeding or purulent drainage. Dry lips. NECK: Trachea midline. Supple, nontender. CARDIOVASCULAR: Tachycardic with heart rate in the 110s. Peripheral pulses symmetric. RESPIRATORY/CHEST: Symmetric, increased work of breathing while on BiPAP. Using accessory muscles. Diminished breath sounds bilaterally. GASTROINTESTINAL: Abdomen soft, non-tender, nondistended. No guarding. Bowel sounds present. GENITOURINARY: Without palpable bladder distension. MUSCULOSKELETAL: Extremities without clubbing, cyanosis. Edema to bilateral lower extremities R > L. No mottling or clubbing. NEUROLOGICAL: Awake and alert. Motor and sensory grossly within normal limits. Follows commands. Moves all extremities. PSYCHIATRIC: Intermittent anxiety. Tired looking. Diagnostic Tests Laboratory: Laboratory Results - last 72 hr 10/13/18 10/13/18 10/13/18 06:30 07:20 07:22 Puncture Site Right radial Patient Temperature 98.6 O2 Saturation 95 ABG pH 7.46 H ABG pCO2 41 ABG pO2 93 ABG HCO3 29 H ABG O2 Content 19.7 ABG Base Excess 5.2 H ABG Methemoglobin 0.6 Bony Test Present Hemoglobin 14.7 Carboxyhemoglobin 1.7 O2 Delivery Device Non-rebreathing mask Liter Flow 15.00 Inspired O2 100 Critical Value No Sodium 135 L Potassium 3.9 Chloride 96 L D Carbon Dioxide 30.5 Anion Gap 9 BUN 18 Creatinine 0.45 L Estimated GFR Greater than 89 POC Glucose 128 H Random Glucose 104 Calcium 8.2 L Magnesium 10/13/18 10/13/18 10/14/18 08:44 18:06 04:11 Puncture Site Patient Temperature O2 Saturation ABG pH ABG pCO2 ABG pO2 ABG HCO3 ABG O2 Content ABG Base Excess ABG Methemoglobin Bony Test Hemoglobin Carboxyhemoglobin O2 Delivery Device Liter Flow Inspired O2 Critical Value Sodium 136 Potassium 4.7 D Chloride 97 L Carbon Dioxide 31.1 Anion Gap 8 BUN 26 H Creatinine 0.60 Estimated GFR Greater than 89 POC Glucose 151 H 109 Random Glucose 101 Calcium 8.9 Magnesium 2.4 10/15/18 03:28 Puncture Site Patient Temperature O2 Saturation ABG pH ABG pCO2 ABG pO2 ABG HCO3 ABG O2 Content ABG Base Excess ABG Methemoglobin Bony Test Hemoglobin Carboxyhemoglobin O2 Delivery Device Liter Flow Inspired O2 Critical Value Sodium 138 Potassium 5.3 H Chloride 99 Carbon Dioxide 31.3 Anion Gap 8 BUN 49 H Creatinine 1.03 H Estimated GFR 55 L POC Glucose Random Glucose 106 Calcium 9.0 Magnesium 2.6 H Result Diagrams: 10/12/18 08:00 10/15/18 03:28 Microbiology: Microbiology 10/13/18 00:20 Gram Stain - Final Sputum - Expectorated Sputum Sputum Culture - Final Heavy growth normal respiratory won Imaging: Chest x-ray 10/13/18: CONCLUSION: 1. Complete opacification of the left hemithorax. 2. Progressive patchy airspace disease in the right lower lung zone. Chest CTA 10/12/18: CONCLUSION: 1. Compared to the prior exam, there is a new small to moderate right-sided pleural effusion. 2. There is no evidence of pulmonary embolism. 3. There has been no significant change in the overall appearance of the left hemithorax compared to the prior exam. 4. There is some new compressive atelectasis in the right lung base. 5. There are multiple stable nonspecific right-sided pulmonary nodules. Patient/Family Conference Present at Family Conference: Patient and daughter Bel. Family Conference Time: 45 Family Conference Location: Bedside, Telephone Issues Discussed: * Palliative care role, purpose, approach * Additional medical, psychosocial, and spiritual history * Patients general health, functional status, and cognitive changes in the months leading up to the current hospitalization * Patient/family understanding of the current medical problems * Patient/family understanding of prognosis * Patients goals of care as best understood from advance directives and/or conversations and/or values * Current medical treatment options and benefits/burdens of those options * Likely scenarios comparing ongoing aggressive care with a transition to comfort measures only * Questions answered to the best of my ability * Palliative care contact information provided * Risks, benefits and limitations of CPR, intubation and mechanical ventilation in the setting of progressive lung cancer * Hospice philosophy and benefits Assessment and Plan - Disease Oriented Problem List (1) Acute respiratory failure (2) Adenocarcinoma of lung (3) Acute kidney insufficiency (4) Physical deconditioning (5) COPD exacerbation - Symptom Scale (1) Shortness of breath 0-10 Scale: Unable to quantify (2) Pain 0-10 Scale: Unable to quantify Pertinent Non-Medical Issues: Psychosocial: Patient is . She has 1 daughter. 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 No service. Spiritual: No gnosticism affiliation. Legal: Advance directives completed. Ethical issues impacting care: No ethical issues identified. Important Contacts: Daughter Bel Serrato Prognosis: Mrs. Herndon is a 58 y/o female with a medical history significant for progressive adenocarcinoma of lung, emphysema/COPD, CAD, AR status post CABG and hypertension. Patient presented to ED via EMS on 10/12/18 endorsing worsening shortness of breath. Clinical course complicated by acute respiratory failure requiring BiPAP support. Patient with progressive adenocarcinoma of lung while on multiple lines of systemic treatment. She appears end-of-life at this time, requiring maximum BiPAP support. She appears hospice appropriate should she elects comfort-directed care, life expectancy of hours to days if illness run its natural course. Code Status: No Code DNR Plan: * CODE STATUS: DNR/DNI. * HEALTHCARE DECISION-MAKING: Patient participating in medical decision making. Advance directives completed, patient has elected her only daughter Bel Serrato as healthcare surrogate decision-maker should she loses decision-making capacity. * GOALS OF CARE: Patient supported by her daughter Bel is electing to transition to comfort-directed care in the setting of progressive adenocarcinoma of lung/significant tumor burden to bilateral lungs with complete opacification of the left hemithorax. Patient wishing to discontinue aggressive management in favor of symptom management of dyspnea and pain and end -of-life care. Patient/daughter considering transfer patient to hospice care center while on BiPAP for discontinuation of BiPAP once additional family members arrive either later tonight or tomorrow morning. Patient, daughter understand that her condition is terminal with a life expectancy of hours to days if illness run its natural course/discontinuation of BiPAP. Patient verbalizing feeling exhausted, wishing to discontinue BiPAP and transition to comfort-care as soon as possible. * SYMPTOMS: = Dyspnea in the setting of progressive adenocarcinoma of lungs, COPD exacerbation, likely new onset of heart failure. Most recent bronchoscopy 09/09, case discussed with pulmonology Dr. Chand, patient not likely to benefit from additional bronchoscopy. Patient with significant tumor burden to bilateral lungs, complete opacification of the left hemithorax. Currently on BiPAP at 100% FiO2, plan to discontinue once at hospice care center. Currently on fentanyl 150 mcg patch and oxycodone 15 mg as needed. She has continued on Solu-Medrol 60 mg every 6 hours [id number]. Lorazepam available as needed. = Pain: Acute on chronic secondary to burden of disease. Chest pain with inspiration. Currently on pain regimen as a stated above. No additional recommendations at this time. Pending transfer to hospice care center for symptom management and end-of-life care. * Case discussed with attending Dr. Bender and pulmonology Dr. Chand. * Palliative care contact information has been provided to patient and family. * Palliative care will continue to follow-up for further clarifications of goals of care as patient's clinical course continues to evolve. Time Spent Total Floor Time (mins): 72 (Total time to include review of summarization of available medical records to include prior hospitalizations and oncology notes, physical exam, goals of care conversation with patient and daughter, case discussion with attending and pulmonology, case discussion with hospice nurse. ) >50% Time in Counseling or Coordination of Care: Yes (Total visit time = 72 minutes; > 50% spent counseling/coordinating care) Appreciation Thank you for the opportunity to participate in the care of Nicol Herndon. Attestation Attestation: To help prompt me to consider important information that might be impacting today's encounter and assessment, information from prior notes written by myself or my colleagues may have been "brought forward" into today's note. My signature on this note, however, is an attestation that I personally performed the exam, history, and/or decision-making noted today, and, unless otherwise indicated, the interactions with patient, family, and staff as well as the review of records all occurred today. I also attest that the listed assessment and stated plan reflect my best clinical judgment today based on the combination of historical information, prior notes, and today's exam/ interactions. When time spent is documented, it refers only to time spent today by the signer, or if indicated, combined time spent today by collaborating physician/nurse practitioner.
--- NOTE | 2018-10-15 14:39 | P.DS ---
DS: Providers Date of admission: 10/13/18 08:26 Primary care physician: Bianca Yuan Consults: 10/12/18 14:49 Consult to Pulmonology Routine Consulting Provider: Damian Chand Revolving Inventory Clerk:: Damian Chand Reason for Consultation: SOB DR Chand aware Notified:: Office Spoke with:: Roxy Date Notified:: 10/12/18 Time Notified:: 15:47 Ordering Provider: AMANDA 10/15/18 09:50 Consult to Palliative Care Routine Consulting Provider: Mariam Murry Reason for Consultation: Clarify goals of care Notified:: Service Spoke with:: Emma Date Notified:: 10/15/18 Time Notified:: 09:54 Ordering Provider: AMANDA Brief History from admission: This is a 58-year-old female with history of stage IV lung cancer on Keytruda, coronary artery disease status post ID and CABG and COPD. She returns to the emergency department because of worsening shortness of breath. Denies fever, chills. She has chronic productive cough of yellow sputum. She also reports intermittent bilateral lower extremity swelling and was evaluated in the emergency department 2 days ago and was advised to increase Lasix. Denies leg pain. CHEST X-RAY independently reviewed by me showed complete opacification of the left hemithorax and parenchymal changes on the right base. Chest CTA shows new small to moderate right-sided pleural effusion. No evidence of pulmonary embolism. No significant change in the overall appearance of the left hemothorax. There is some new compressive atelectasis in the right lung base and multiple stable nonspecific right-sided pulmonary nodules. BNP is also elevated but no history of heart failure. All other systems reviewed DS: Summary This is a 58-year-old female with history of stage IV lung cancer on Keytruda, coronary artery disease status post ID and CABG and COPD. She returns to the emergency department because of worsening shortness of breath. Denies fever, chills. She has chronic productive cough of yellow sputum. She also reports intermittent bilateral lower extremity swelling and was evaluated in the emergency department 2 days ago and was advised to increase Lasix. Denies leg pain. CHEST X-RAY independently reviewed by me showed complete opacification of the left hemithorax and parenchymal changes on the right base. Chest CTA shows new small to moderate right-sided pleural effusion. No evidence of pulmonary embolism. No significant change in the overall appearance of the left hemothorax. There is some new compressive atelectasis in the right lung base and multiple stable nonspecific right-sided pulmonary nodules. BNP is also elevated Acute hypoxemic respiratory failure. ABG pH of 7.46 PCO2 41 PO2 of 93 on nonrebreather. Chest x-ray shows worsening patchy airspace disease in the right lower lung zone. CTA shows no PE with atelectasis and moderate pleural effusion on the right lung. Unable to wean still requiring 100% oxygen. Continue BiPAP. Incentive spirometry. Discussed with pulmonary, do not think bronchoscopy will be of benefit. Patient already had 2 bronchoscopies. Recommended palliative care Suspected new onset heart failure. EF 60% we will continue diuresis with IV Lasix with potassium supplementation and monitor renal function. CHF education , I/L and monitor weight. Lasix discontinued secondary to azotemia, hyperkalemia and decreased urine output. Will give IV hydration NS for 1 L COPD exac. Continue scheduled nebulization, IV steroids and Levaquin. Ordered sputum culture Elevated BP. No history of hypertension. Patient on Nitropaste as needed Vasotec and clonidine Hyponatremia likely from lung cancer per the fluid restriction. Monitor consider NaCl tabs Anxiety. Vistaril and Ativan as needed DVT prophylaxis with subcu heparin, SCD and early ambulation Patient is critically ill will keep in ICU. High likelihood of respiratory decompensation requiring intubation and mechanical ventilation Family and pt decided on comfort measures only and will be transferred to Hospice care center today Time Spent with Patient Total time spent providing and/or coordinating discharge services: Greater than 30 minutes Quality: VTE Deep Vein Thrombosis/Pulmonary Embolism Present on Admission: No Exam Narrative Exam Narrative: GENERAL: Well-developed, well-nourished patient who is critically ill on BiPAP SKIN: Warm and dry. CARDIOVASCULAR: Regular rate and rhythm. RESPIRATORY: No accessory muscle use. Decreased breath sounds with improved expiratory wheeze. Bilateral rhonchi GASTROINTESTINAL: Abdomen soft, non-tender, nondistended. MUSCULOSKELETAL: Extremities without clubbing, cyanosis but with improving bilateral lower extremity pitting edema. No obvious deformities. NEUROLOGICAL: Awake and alert. No obvious cranial nerve deficits. Motor grossly within normal limits. Five out of 5 muscle strength in the arms and legs. Normal speech. Results Labs on day of discharge: Labs from last 24 hours 10/15/18 03:28 Sodium 138 Potassium 5.3 H Chloride 99 Carbon Dioxide 31.3 Anion Gap 8 BUN 49 H Creatinine 1.03 H Estimated GFR 55 L Random Glucose 106 Calcium 9.0 Magnesium 2.6 H Impressions ITS Impressions Chest CTA 10/12/18 11:24 CONCLUSION: 1. Compared to the prior exam, there is a new small to moderate right-sided pleural effusion. 2. There is no evidence of pulmonary embolism. 3. There has been no significant change in the overall appearance of the left hemithorax compared to the prior exam. 4. There is some new compressive atelectasis in the right lung base. 5. There are multiple stable nonspecific right-sided pulmonary nodules. Chest X-Ray 10/13/18 00:00 CONCLUSION: 1. Complete opacification of the left hemithorax. 2. Progressive patchy airspace disease in the right lower lung zone. Discharge Plan Discharge Disposition Patient Disposition: [facility] Discharge Condition Condition: Serious Discharge Order Discharge Orders: Discharge Order (Routine); Ordered 10/15/18 Ordered By: Walter Bender Physicians Team Attending Provider: Walter Bender Other Providers: Damian Chand ; Mariam Murry Rxs /Orders / Referrals /Forms Prescriptions: Continue fentanyl 50 mcg/hr Patch 72 Hour 1 patch TRANSDERMAL Q72H RF: 0 oxycodone 15 mg Tablet 15 mg PO Q4-6H PRN (Reason: Pain) RF: 0 fentanyl 100 mcg/hr Patch 72 Hour 1 patch TRANSDERMAL Q72H RF: 0 dexamethasone 1 mg Tablet 1 mg PO DAILY RF: 0 Discontinued benzonatate 100 mg Capsule 100 mg PO TID PRN (Reason: Cough) RF: 0 gabapentin 300 mg Capsule 300 mg PO BID RF: 0 albuterol sulfate 90 mcg/actuation Hfa Aerosol Inhaler 2 puff INHALATION QID PRN (Reason: Wheezing) RF: 0 furosemide [Lasix] 80 mg tablet 80 mg PO DAILY Qty: 30 RF: 0 Referrals: Bianca Yuan [Other] - See Instructions (Follow-up hospice today) Post Discharge Care Plan Care Plan Goals: Your Health Problems: Goals to Promote Your Health: * To prevent worsening of your condition * To maintain your health at the optimal level Directions to Meet Your Goals: * Take your medications as prescribed * Follow your dietary instruction * Follow activity as directed * Keep your appointments as scheduled * Take your immunizations and boosters as scheduled * If your symptoms worsen call your PCP * If no PCP go to Urgent Care or Emergency Room Smoking is dangerous to your health. Avoid second hand smoke. You may reach the 24-hour crisis hotline for domestic abuse at . Status ED Status: Left Department
--- NOTE | 2018-10-15 15:38 | P.PNPL ---
Subjective Interval history: 58 YOWF with Advanced lung ca, white out left lung Worsening sob On BIPAP denies CP No fever On Fi02 100% Pt's mother and daughter at BS They have decided for Hospice Physical Exam Vital signs: Vital Signs 10/14/18 16:10 10/14/18 16:15 10/14/18 19:00 Temperature 97.9 F Pulse Rate 114 H 117 H Respiratory Rate 21 18 Blood Pressure 119/82 Pulse Oximetry 89 L 92 L 10/14/18 21:20 10/14/18 21:28 10/14/18 22:30 Temperature Pulse Rate 100 H Respiratory Rate 15 Blood Pressure Pulse Oximetry 90 L 89 L 10/14/18 23:00 10/15/18 00:16 10/15/18 03:00 Temperature 97.8 F 97.9 F Pulse Rate 115 H 112 H Respiratory Rate 20 20 Blood Pressure 120/80 135/92 H Pulse Oximetry 97 97 95 10/15/18 03:29 10/15/18 03:39 10/15/18 07:00 Temperature 97.4 F L Pulse Rate 110 H 108 H Respiratory Rate 24 24 Blood Pressure 127/90 Pulse Oximetry 96 92 L 10/15/18 07:25 10/15/18 08:00 10/15/18 09:50 Temperature Pulse Rate 115 H Respiratory Rate 21 Blood Pressure Pulse Oximetry 90 L 92 L 10/15/18 11:00 10/15/18 13:09 Temperature 97.0 F L Pulse Rate 116 H Respiratory Rate 24 Blood Pressure 122/80 Pulse Oximetry 88 L 90 L Intake & Output 10/14/18 10/15/18 10/15/18 18:59 06:59 18:59 Intake Total 250 / 250 100 / 100 Output Total 500 / 500 200 / 200 Balance -250 / -250 -100 / -100 Weight 50 kg Intake: Oral 250 / 250 100 / 100 Output: Urine 500 / 500 200 / 200 Other: Date of Last Bowel Movement 10/13/18 10/13/18 10/13/18 GENERAL: MBMN In Mod sob SKIN: Warm and dry. HEAD: Normocephalic. EYES: No scleral icterus. No injection or drainage. NECK: Supple, trachea midline. No JVD or lymphadenopathy. CARDIOVASCULAR: Regular rate and rhythm without murmurs, gallops, or rubs. RESPIRATORY: Breath sounds equal bilaterally. No accessory muscle use. no BS left GASTROINTESTINAL: Abdomen soft, non-tender, nondistended. MUSCULOSKELETAL: No cyanosis, or edema. BACK: Nontender without obvious deformity. No CVA tenderness. Assessment and Plan - Plan IMPRESSION: 1. Respiratory insufficiency. 2. Whiteout of the left lung due to advanced carcinoma and atelectasis. 3. Chronic obstructive pulmonary disease. 4. Right small to moderate pleural effusion. 5. History of coronary artery disease, status post coronary artery bypass grafting. PLAN: Cont BIPAP, Fi02 100% keep sat >90% Cont Abx Aerosol nebs DW pt daughter and mother Prognsis poor Hospice care
[2018-10-15 15:44] VITALS: BP 138/95; TEMP 97.2; O2SAT 89
[2018-10-15 17:04] VITALS: PULSE 106; RESP 22
[2018-10-15] MEDS ORDERED: Morphine Inj 4 MG/ML Vial IV.PUSH SCH (17:15)
== END 2018-10-15 20:00 | disposition hospice, inpatient (51) | DRG 189 ==
LOC: NEPE 07:43 → INTOOBSV 11:26 → NEDA 11:26 → NEPGCP 15:53 → HCVI 10-13 08:10
PROVIDERS: ADMIT Hospitalist; ATTEND Hospitalist
CPT/HCPCS: 36600; 71010; 71045; 71275; 80048; 80053; 82805; 82948; 82962; 83520; 83735; 83880; 85025; 85610; 85730; 87070; 87205; 90765; 93306; 94002; 94003; 94640; 94656; 94657; 94665; 96365; 97162; 99285; G0378; J0456; J0692; J1644; J1940; J2060; J2920; J7030; J7050; Q0177; Q9967